=== PATIENT | female | born 1975 | race Caucasian/White ===

== ENCOUNTER 2016-08-16 07:53 | Emergency (ER) | payer MEDICAID ==
[2016-08-16] MEDS ORDERED: DEXAMETHASONE 10 MG/ML VIAL PO STA (08:23)
[2016-08-16] MEDS ORDERED: DEXAMETHASONE 10 MG/ML VIAL ONE (08:37)
[2016-08-16] MEDS ORDERED: CHERRY SYRUP 10 ML UDC PO ONE (08:37)
== END 2016-08-16 09:45 | disposition home or self-care (01) ==
DX: S29.012A Strain of muscle and tendon of back wall of thorax, initial encounter (principal); X50.9XXA Other and unspecified overexertion or strenuous movements or postures, initial encounter; H66.001 Acute suppurative otitis media without spontaneous rupture of ear drum, right ear; M35.2 Behcet's disease; F17.200 Nicotine dependence, unspecified, uncomplicated; Z79.891 Long term (current) use of opiate analgesic; Z87.01 Personal history of pneumonia (recurrent)
CPT/HCPCS: 71020; 99283; 99284; A9270

== ENCOUNTER 2018-05-27 14:29 | Emergency (ER) | payer MEDICAID ==
[2018-05-27 15:01] LABS: BASOPHILS # (AUTO) 0.1 10^3/uL (0.0-0.1); BASOPHILS % (AUTO) 1.1 %; EOSINOPHILS # (AUTO) 0.1 10^3/uL (0.0-0.7); EOSINOPHILS % (AUTO) 0.9 %; HGB - HEMOGLOBIN 14.7 g/dL (12.0-16.0); LYMPHOCYTES # (AUTO) 1.6 10^3/uL (1.5-3.5); MEAN CORPUSCULAR HEMOGLOBIN 31.4 pg (27.0-31.0); MEAN CORPUSCULAR HGB CONC 33.8 g/dL (32.0-36.0); MONOCYTES # (AUTO) 0.6 10^3/uL (0.0-1.0); MONOCYTES % (AUTO) 4.8 %; NEUTROPHILS # (AUTO) 9.9 10^3/uL (1.5-6.6); NEUTROPHILS % (AUTO) 80.2 %; PLT - PLATELET COUNT 330 10^3/uL (130-450); RED BLOOD COUNT 4.68 10^6/uL (4.20-5.40); RED CELL DISTRIBUTION WIDTH 13.3 % (12.0-15.0); WHITE BLOOD COUNT 12.4 x10^3/uL (4.8-10.8)
[2018-05-27] MEDS ORDERED: SODIUM CHLORIDE 0.9% 1,000 ML IV ONE (15:05)
[2018-05-27] MEDS ORDERED: PANTOPRAZOLE 40 MG VIAL IVP STA (15:05)
[2018-05-27] MEDS ORDERED: ONDANSETRON 4 MG/2 ML VIAL IVP STA (15:05)
--- NOTE | 2018-05-27 15:10 | ED Physician Documentation ---
PD HPI ABD PAIN - Stated complaint Stated Complaint: ABD PX, N/V/F - Chief complaint Chief Complaint: Abd Pain - History obtained from History obtained from: Patient, Family - History of Present Illness Timing - onset: Last night Timing - duration: Hours (20) Timing - details: Gradual onset Pain level max: 8 Pain level now: 8 Quality: Aching, Pain Location: Epigastric Radiation: Other (non-radiating) Improved by: Vomiting Worsened by: Eating Associated symptoms: Nausea, Vomiting. No: Fever, Hematemesis, Diarrhea, Constipation, Melena, Hematochezia Similar symptoms before: Diagnosis (ulcers) Recently seen: Not recently seen Review of Systems Ten Systems: 10 systems reviewed and negative Constitutional: denies: Fever, Chills Nose: denies: Rhinorrhea / runny nose, Congestion Respiratory: denies: Cough : denies: Now EGA Skin: denies: Rash Musculoskeletal: denies: Neck pain, Back pain Neurologic: denies: Focal weakness, Numbness, Headache PD PAST MEDICAL HISTORY - Past Medical History Cardiovascular: None Respiratory: None Endocrine/Autoimmune: None GI: None HEENT: None Psych: Depression, Anxiety Musculoskeletal: Osteoarthritis, Fibromyalgia, Other Derm: None - Past Surgical History Past Surgical History: Yes - Present Medications Home Medications: Ambulatory Orders Medication Instructions Recorded Confirmed Cyclosporine 200 mg PO DAILY 03/14/16 08/16/16 Gabapentin 300 mg ORAL BID 03/14/16 08/16/16 Ibuprofen 800 mg ORAL QID PRN 03/14/16 08/16/16 Meloxicam [Mobic] 15 mg PO DAILY 03/14/16 08/16/16 Morphine Sulfate [Ms Contin] 15 mg PO TID 03/14/16 08/16/16 Omeprazole [PriLOSEC] 40 mg PO BID 03/14/16 08/16/16 Oxycodone HCl/Acetaminophen 1 tab PO TID 03/14/16 08/16/16 [Oxycodone-Acetaminophen 5-325] Prednisone 10 mg PO PRN PRN 03/14/16 08/16/16 Famotidine [Pepcid] 20 mg PO BID #60 tablet 05/27/18 Ondansetron Odt [Zofran] 4 mg TL Q6H PRN #10 tablet 05/27/18 Sucralfate [Carafate] 1 gm PO ACHS #60 tablet 05/27/18 - Allergies Allergies/Adverse Reactions: Allergies Allergy/AdvReac Type Severity Reaction Status Date / Time Penicillins Allergy Cramps Verified 05/27/18 14:38 - Social History Does the pt smoke?: Yes Smoking Status: Current every day smoker Does the pt drink ETOH?: No Does the pt have substance abuse?: No - Immunizations Immunizations are current?: Yes PD ED PE NORMAL - Vitals Vital signs reviewed: Yes - General General: Alert and oriented X 3, No acute distress - HEENT HEENT: Moist mucous membranes - Neck Neck: Supple, no meningeal sign - Cardiac Cardiac: RRR, Strong equal pulses - Respiratory Respiratory: No respiratory distress, Clear bilaterally - Abdomen Abdomen: Soft, Non distended, Other (TTP epigastric without peritoneal signs.) - Back Back: No spinal TTP - Derm Derm: Warm and dry, No rash - Extremities Extremities: No edema - Neuro Neuro: Alert and oriented X 3 Results - Vitals Vitals: Vital Signs - 24 hr 05/27/18 05/27/18 14:36 17:09 Temperature 36.4 C L Heart Rate 79 98 Respiratory 22 20 Rate Blood Pressure 122/74 138/98 H O2 Saturation 100 100 Oxygen O2 Source Room air - Labs Labs: Laboratory Tests 05/27/18 05/27/18 05/27/18 14:55 14:55 16:45 WBC 12.4 H RBC 4.68 Hgb 14.7 Hct 43.6 MCV 93.0 MCH 31.4 H MCHC 33.8 RDW 13.3 Plt Count 330 MPV 8.0 Neut # (Auto) 9.9 H Lymph # (Auto) 1.6 [place] # (Auto) 0.6 Eos # (Auto) 0.1 Baso # (Auto) 0.1 Absolute Nucleated RBC 0.00 Nucleated RBC % 0.0 Sodium 135 Potassium 3.2 L Chloride 106 Carbon Dioxide 19 L Anion Gap 10.0 BUN 10 Creatinine 0.5 Estimated GFR (MDRD) 137 Glucose 102 H Calcium 9.2 Total Bilirubin 0.8 AST 21 ALT 19 Alkaline Phosphatase 68 Total Protein 7.5 Albumin 4.4 Globulin 3.1 Albumin/Globulin Ratio 1.4 Lipase 28 Urine Color YELLOW Urine Clarity CLEAR Urine pH >=9.0 H Ur Specific [place] 1.010 Urine Protein NEGATIVE Urine Glucose (UA) NEGATIVE Urine Ketones 40 H Urine Occult Blood NEGATIVE Urine Nitrite NEGATIVE Urine Bilirubin NEGATIVE Urine Urobilinogen 0.2 (NORMAL) Ur Leukocyte Esterase NEGATIVE Ur Microscopic Review NOT INDICATED Urine Culture Comments NOT INDICATED Urine HCG, Qual NEGATIVE PD MEDICAL DECISION MAKING - ED course Complexity details: reviewed results, re-evaluated patient, considered differential, d/w patient, d/w family ED course: 42-year-old female with vomiting and abdominal pain today. Feels better after Zofran and GI cocktail. Able to tolerate p.o. No acute findings on laboratory testing. This is similar to past episodes. We will continue supportive care and follow-up closely with her doctor. Patient counseled regarding signs and symptoms for which I believe and urgent re-evaluation would be necessary. Patient with good understanding of and agreement to plan and is comfortable going home at this time This document was made in part using voice recognition software. While efforts are made to proofread this document, sound alike and grammatical errors may occur. Departure - Departure Disposition: 01 Home, Self Care Clinical Impression: Vomiting Qualifiers: Vomiting type: unspecified Vomiting Intractability: non-intractable Nausea presence: with nausea Qualified Code(s): R11.2 - Nausea with vomiting, unspecified Abdominal pain Qualifiers: Abdominal location: epigastric Qualified Code(s): R10.13 - Epigastric pain Condition: Good Instructions: ED Abdominal Pain Unkn Cause, ED Nausea Vomiting Follow-Up: Nafisa Clemons PA-C [Primary Care Provider] - Within 1 week Prescriptions: Famotidine [Pepcid] 20 mg PO BID #60 tablet Ondansetron Odt [Zofran] 4 mg TL Q6H PRN #10 tablet PRN Reason: Nausea / Vomiting Sucralfate [Carafate] 1 gm PO ACHS #60 tablet Comments: Return if you worsen. Go home and rest tonight. Drink plenty of fluids. Discharge Date/Time: 05/27/18 17:25
[2018-05-27 15:14] LABS: ALBUMIN 4.4 g/dL (3.2-5.5); ALBUMIN/GLOBULIN RATIO 1.4 (1.0-2.2); BILIRUBIN,TOTAL 0.8 mg/dL (0.2-1.0); CALCIUM 9.2 mg/dL (8.5-10.3); CREATININE 0.5 mg/dL (0.4-1.0); TOTAL PROTEIN 7.5 g/dL (6.7-8.2)
[2018-05-27] MEDS ORDERED: PHENobarb/HYOSCY/ATROPINE/SCOP 5 ML UDC PO STA (16:50)
[2018-05-27] MEDS ORDERED: MAG HYDROX/AL HYDROX/SIMETH 30 ML UDC PO STA (16:50)
[2018-05-27] MEDS ORDERED: FAMOTIDINE 20 MG TABLET PO STA (16:50)
[2018-05-27] MEDS ORDERED: SUCRALFATE 1 GM/10 ML UDC PO STA (16:50)
[2018-05-27 16:52] LABS: BILIRUBIN,URINE NEGATIVE (NEGATIVE); GLUCOSE, URINE (UA) NEGATIVE (NEGATIVE); KETONES,URINE (UA) 40 mg/dL (NEGATIVE); LEUKOCYTE ESTERASE, URINE NEGATIVE (NEGATIVE); NITRITE,URINE NEGATIVE (NEGATIVE); OCCULT BLOOD,URINE NEGATIVE (NEGATIVE); PH,URINE >=9.0 PH (5.0-7.5); PROTEIN,URINE NEGATIVE (NEGATIVE); UROBILINOGEN,URINE 0.2 (NORMAL) E.U./dL (NORMAL)
[2018-05-27 16:56] LABS: CLARITY,URINE CLEAR (CLEAR); HCG UR QUAL NEGATIVE
[2018-05-27 17:09] VITALS: BP 138/98
== END 2018-05-27 17:25 | disposition home or self-care (01) ==
LOC: ED 14:29
DX: R11.2 Nausea with vomiting, unspecified (principal); R10.13 Epigastric pain; F17.200 Nicotine dependence, unspecified, uncomplicated
CPT/HCPCS: 36415; 80053; 81003; 81025; 83690; 85025; 96361; 96374; 99283; A9270; 81001; 87086

== ENCOUNTER 2018-08-03 08:25 | Outpatient (CLI) | payer MEDICAID ==
--- NOTE | 2018-08-03 11:01 | Ultrasound Report ---
Reason: ABDOMINAL PAIN,EPIGASTRIC,CHRONIC PAIN SYNDROME Procedure Date: 08/03/2018 Accession Number: [id number] / [id number] Procedure: US - Abdomen Limited CPT Code: FULL RESULT: EXAM: ABDOMEN ULTRASOUND LIMITED, RUQ EXAM DATE: 08/03/2018 09:48 AM. CLINICAL HISTORY: ABDOMINAL PAIN,EPIGASTRIC,CHRONIC PAIN SYNDROME. Behcet's syndrome COMPARISON: CT abdomen pelvis 03/04/2014. TECHNIQUE: Real-time scanning was performed with static images obtained. FINDINGS: Liver: Normal in size and echotexture. Small 7 x 6 x 7 mm echogenic focus right lobe of the liver, possible hemangioma. Similar lesion seen 03/04/[address] 13.3 cm. Main portal vein flow: Hepatopetal. Gallbladder: Mildly contracted. No stones seen. Wall thickness 1.8 mm Biliary System: CBD measures 4.6 mm. No intrahepatic or extrahepatic ductal dilatation. Free fluid: None. Right kidney: 12.5 cm longitudinally; no hydronephrosis. IMPRESSION: Subcentimeter echogenic right hepatic lobe lesion, likely a small hemangioma, present on 03/04/2014. No cholelithiasis or cholecystitis. RADIA
== END 2018-08-03 08:26 | disposition home or self-care (01) ==
LOC: DI 08:25
PROVIDERS: ATTEND Internal Medicine Gastroenterology
DX: R10.13 Epigastric pain (principal); G89.4 Chronic pain syndrome; K76.9 Liver disease, unspecified
CPT/HCPCS: 76705

== ENCOUNTER 2018-08-21 10:33 | Outpatient (CLI) | payer MEDICAID ==
[2018-08-21 11:33] LABS: BASOPHILS # (AUTO) 0.1 10^3/uL (0.0-0.1); BASOPHILS % (AUTO) 0.9 %; EOSINOPHILS # (AUTO) 0.1 10^3/uL (0.0-0.7); EOSINOPHILS % (AUTO) 1.3 %; HGB - HEMOGLOBIN 13.1 g/dL (12.0-16.0); LYMPHOCYTES # (AUTO) 1.8 10^3/uL (1.5-3.5); LYMPHOCYTES % (AUTO) 17.4 %; MEAN CORPUSCULAR HEMOGLOBIN 31.1 pg (27.0-31.0); MEAN CORPUSCULAR HGB CONC 33.9 g/dL (32.0-36.0); MEAN CORPUSCULAR VOLUME 91.8 fL (81.0-99.0); MEAN PLATELET VOLUME 8.1 fL (7.9-10.8); MONOCYTES # (AUTO) 0.8 10^3/uL (0.0-1.0); MONOCYTES % (AUTO) 7.7 %; NEUTROPHILS # (AUTO) 7.5 10^3/uL (1.5-6.6); NEUTROPHILS % (AUTO) 72.7 %; PLT - PLATELET COUNT 311 10^3/uL (130-450); RED BLOOD COUNT 4.19 10^6/uL (4.20-5.40); RED CELL DISTRIBUTION WIDTH 12.9 % (12.0-15.0); WHITE BLOOD COUNT 10.4 x10^3/uL (4.8-10.8)
[2018-08-21 12:36] LABS: CALCIUM 8.8 mg/dL (8.5-10.3)
[2018-08-21 16:02] LABS: ALBUMIN 3.9 g/dL (3.2-5.5); ALBUMIN/GLOBULIN RATIO 1.3 (1.0-2.2); BILIRUBIN,TOTAL 0.3 mg/dL (0.2-1.0); CREATININE 0.4 mg/dL (0.4-1.0)
== END 2018-08-21 10:34 | disposition home or self-care (01) ==
LOC: LAB 10:33
PROVIDERS: ATTEND Internal Medicine Gastroenterology
DX: R10.13 Epigastric pain (principal)
CPT/HCPCS: 36415; 80053; 83690; 85025

== ENCOUNTER 2018-08-30 09:27 | Day surgery (SDC) | payer MEDICAID ==
[2018-08-30 09:54] LABS: HCG UR QUAL NEGATIVE
[2018-08-30] MEDS ORDERED: LACTATED RINGERS 1,000 ML IV ONE ×2 (10:01→10:29)
[2018-08-30] MEDS ORDERED: LIDO GARGLE 30 ML BOTTLE ONE (10:02)
[2018-08-30] MEDS ORDERED: fentaNYL 100 MCG/2 ML VIAL IVP ONE (10:15)
[2018-08-30] MEDS ORDERED: MIDAZOLAM 2 MG/2 ML VIAL IVP ONE (10:15)
[2018-08-30] MEDS ORDERED: LIDO GARGLE 30 ML BOTTLE TOP ONE (10:26)
[2018-08-30 11:14] VITALS: BP 105/77
== END 2018-08-30 09:28 | disposition home or self-care (01) ==
LOC: SDS 09:27
PROVIDERS: ATTEND Internal Medicine Gastroenterology
PROC: 0DB78ZX Excision of Stomach, Pylorus, Via Natural or Artificial Opening Endoscopic, Diagnostic (ICD-10-PCS; 2018-08-30)
PROC: 0DB98ZX Excision of Duodenum, Via Natural or Artificial Opening Endoscopic, Diagnostic (ICD-10-PCS; principal; 2018-08-30 09:45)
DX: R10.13 Epigastric pain (principal); K25.9 Gastric ulcer, unspecified as acute or chronic, without hemorrhage or perforation; K29.60 Other gastritis without bleeding; B96.81 Helicobacter pylori [H. pylori] as the cause of diseases classified elsewhere; F17.210 Nicotine dependence, cigarettes, uncomplicated; K21.9 Gastro-esophageal reflux disease without esophagitis; M35.2 Behcet's disease; G89.4 Chronic pain syndrome
CPT/HCPCS: 43239; 81025; 87081; A9270; J7120

== ENCOUNTER 2018-10-08 14:22 | Outpatient (CLI) | payer MEDICAID ==
[2018-10-08 15:40] LABS: THYROID STIMULATING HORMONE 0.55 uIU/mL (0.34-5.60)
[2018-10-08 15:42] LABS: FREE T4 (FREE THYROXINE) 0.66 ng/dL (0.58-1.64)
== END 2018-10-08 14:23 | disposition home or self-care (01) ==
LOC: LAB 14:22
PROVIDERS: ATTEND Family Medicine
DX: M79.7 Fibromyalgia (principal)
CPT/HCPCS: 36415; 84439; 84443; 84481

== ENCOUNTER 2018-11-24 21:14 | Emergency (ER) | payer MEDICAID ==
--- NOTE | 2018-11-24 21:57 | ED Physician Documentation ---
PD HPI FEMALE - Stated complaint Stated Complaint: ABD PX/FEVER - Chief complaint Chief Complaint: Abd Pain - History obtained from History obtained from: Patient - History of Present Illness Timing - onset: How many days ago (4) Timing - duration: Days Timing - details: Gradual onset, Waxing and waning Associated symptoms: Fever, Back pain, Dysuria, Urinary frequency, Hematuria Contributing factors: IUD Similar symptoms before: Diagnosis (similar to previous UTI/pyelonephritis) Recently seen: Not recently seen - Additional information Additional information: c/o 4 days of dysuria c/w previous UTIs, developed right flank/back pain and hematuria since yesterday. Has nausea but no vomiting. Feels as though she's been having fevers; she has taken her temperature while at work and Tmax was 100, but felt worse when she was home but doesn't have working thermometer at home. Review of Systems Constitutional: reports: Fever, Chills, Sweats Respiratory: reports: Reviewed and negative GI: reports: Nausea. denies: Abdominal Pain, Vomiting, Constipation, Diarrhea : reports: Dysuria, Frequency, Hematuria, Control (IUD). denies: Now EGA Musculoskeletal: reports: Back pain PD PAST MEDICAL HISTORY - Past Medical History Cardiovascular: None Respiratory: None Endocrine/Autoimmune: None GI: None HEENT: None Psych: Depression, Anxiety Musculoskeletal: Osteoarthritis, Fibromyalgia, Chronic back pain, Other Derm: None - Past Surgical History Past Surgical History: Yes - Present Medications Home Medications: Ambulatory Orders Medication Instructions Recorded Confirmed Cyclosporine 200 mg PO DAILY 03/14/16 08/30/18 Gabapentin 300 mg ORAL BID 03/14/16 08/30/18 Meloxicam [Mobic] 15 mg PO DAILY 03/14/16 08/30/18 Morphine Sulfate [Ms Contin] 15 mg PO TID 03/14/16 08/30/18 Omeprazole [PriLOSEC] 40 mg PO BID 03/14/16 08/30/18 Oxycodone HCl/Acetaminophen 1 tab PO TID 03/14/16 08/30/18 [Oxycodone-Acetaminophen 5-325] Prednisone 10 mg PO PRN PRN 03/14/16 08/30/18 Ondansetron Odt [Zofran] 4 mg TL Q6H PRN #10 tablet 05/27/18 08/30/18 Sucralfate [Carafate] 1 gm PO ACHS #60 tablet 05/27/18 08/30/18 Cyclobenzaprine [Flexeril] 10 mg PO TID PRN 08/30/18 08/30/18 Ciprofloxacin HCl [Cipro] 500 mg PO BID #14 tablet 11/25/18 oxyCODONE [Roxicodone] 5 mg PO Q4-6H PRN #14 tablet 11/25/18 - Allergies Allergies/Adverse Reactions: Allergies Allergy/AdvReac Type Severity Reaction Status Date / Time Penicillins Allergy violent Verified 08/30/18 10:09 vomiting and cramping - Social History Does the pt smoke?: Yes Smoking Status: Current every day smoker Does the pt drink ETOH?: No Does the pt have substance abuse?: No - Immunizations Immunizations are current?: Yes - POLST Patient has POLST: No PD ED PE NORMAL - Vitals Vital signs reviewed: Yes - General General: Alert and oriented X 3, Well developed/nourished, Other (appears to be in mild/moderate painful discomfort) - HEENT HEENT: Moist mucous membranes - Neck Neck: Supple, no meningeal sign - Cardiac Cardiac: RRR, No murmur - Respiratory Respiratory: No respiratory distress, Clear bilaterally - Abdomen Abdomen: Soft, Non distended, Other (moderate RLQ>RUQ tenderness to palpation without rebound or guarding) - Derm Derm: Normal color, Warm and dry, No rash PD ED PE EXPANDED - Back Back: CVA TTP right Results - Vitals Vitals: Vital Signs - 24 hr 11/24/18 11/25/18 21:18 00:35 Temperature 36.9 C 36.9 C Heart Rate 106 H 104 H Respiratory 22 20 Rate Blood Pressure 136/85 H 129/86 H O2 Saturation 99 98 Oxygen O2 Source Room air - Labs Labs: Laboratory Tests 11/24/18 11/24/18 11/24/18 22:16 22:40 22:40 WBC 16.1 H RBC 4.15 L Hgb 12.9 Hct 38.2 MCV 92.1 MCH 31.1 H MCHC 33.8 RDW 13.1 Plt Count 214 MPV 8.2 Neut # (Auto) 14.1 H Lymph # (Auto) 0.8 L [place] # (Auto) 1.0 Eos # (Auto) 0.0 Baso # (Auto) 0.1 Absolute Nucleated RBC 0.00 Nucleated RBC % 0.0 Sodium 137 Potassium 3.2 L Chloride 106 Carbon Dioxide 19 L Anion Gap 12.0 BUN 8 Creatinine 0.5 Estimated GFR (MDRD) 136 Glucose 107 H Calcium 8.8 Total Bilirubin 1.1 H AST 34 ALT 37 Alkaline Phosphatase 70 Total Protein 7.5 Albumin 3.8 Globulin 3.7 Albumin/Globulin Ratio 1.0 Lipase 21 L Urine Color YELLOW Urine Clarity HAZY Urine pH 7.0 Ur Specific [place] <=1.005 Urine Protein TRACE Urine Glucose (UA) NEGATIVE Urine Ketones NEGATIVE Urine Occult Blood MODERATE H Urine Nitrite POSITIVE H Urine Bilirubin NEGATIVE Urine Urobilinogen 0.2 (NORMAL) Ur Leukocyte Esterase LARGE H Urine RBC 11-25 H Urine WBC >25 H Urine WBC Clumps PRESENT Ur Squamous Epith Cells RARE Squamous Urine Bacteria Many H Ur Microscopic Review INDICATED Urine Culture Comments INDICATED Urine HCG, Qual NEGATIVE - Rads (name of study) CT A/P Radiology: Prelim report reviewed, See rad report PD MEDICAL DECISION MAKING - ED course Complexity details: reviewed old records, reviewed results, re-evaluated patient, considered differential, d/w patient ED course: HPI c/w UTI that has progressed to pyelonephritis. CT A/P performed due to significant abdominal tenderness; results c/w pyelonephritis without complication Departure - Departure Disposition: 01 Home, Self Care Clinical Impression: Pyelonephritis Condition: Good Instructions: ED Kidney Infec Female Follow-Up: Andrea Echevarria MD [Primary Care Provider] - Prescriptions: Ciprofloxacin HCl [Cipro] 500 mg PO BID #14 tablet oxyCODONE [Roxicodone] 5 mg PO Q4-6H PRN #14 tablet PRN Reason: Pain Forms: Activity restrictions Discharge Date/Time: 11/25/18 00:45
[2018-11-24] MEDS ORDERED: HYDROmorphone 1 MG/ML CARPUJECT IVP STA (22:19)
[2018-11-24] MEDS ORDERED: SODIUM CHLORIDE 0.9% 1,000 ML IV STA (22:19)
[2018-11-24] MEDS ORDERED: ONDANSETRON 4 MG/2 ML VIAL IVP STA (22:20)
[2018-11-24 22:24] LABS: BILIRUBIN,URINE NEGATIVE (NEGATIVE); GLUCOSE, URINE (UA) NEGATIVE (NEGATIVE); KETONES,URINE (UA) NEGATIVE (NEGATIVE); LEUKOCYTE ESTERASE, URINE LARGE (NEGATIVE); NITRITE,URINE POSITIVE (NEGATIVE); OCCULT BLOOD,URINE MODERATE (NEGATIVE); PROTEIN,URINE TRACE mg/dL (NEGATIVE); UROBILINOGEN,URINE 0.2 (NORMAL) E.U./dL (NORMAL)
[2018-11-24 22:25] LABS: CLARITY,URINE HAZY (CLEAR)
[2018-11-24 22:27] LABS: HCG UR QUAL NEGATIVE
[2018-11-24 22:35] LABS: BACTERIA,URINE Many /HPF (None Seen); SQUAMOUS EPITHELIAL CELL,UR RARE Squamous (<= Few); WBC CLUMPS,URINE PRESENT
[2018-11-24 22:44] LABS: BASOPHILS # (AUTO) 0.1 10^3/uL (0.0-0.1); BASOPHILS % (AUTO) 0.7 %; EOSINOPHILS % (AUTO) 0.1 %; HGB - HEMOGLOBIN 12.9 g/dL (12.0-16.0); LYMPHOCYTES # (AUTO) 0.8 10^3/uL (1.5-3.5); LYMPHOCYTES % (AUTO) 5.2 %; MEAN CORPUSCULAR HEMOGLOBIN 31.1 pg (27.0-31.0); MEAN CORPUSCULAR HGB CONC 33.8 g/dL (32.0-36.0); MEAN CORPUSCULAR VOLUME 92.1 fL (81.0-99.0); MEAN PLATELET VOLUME 8.2 fL (7.9-10.8); MONOCYTES % (AUTO) 6.4 %; NEUTROPHILS # (AUTO) 14.1 10^3/uL (1.5-6.6); NEUTROPHILS % (AUTO) 87.6 %; PLT - PLATELET COUNT 214 10^3/uL (130-450); RED BLOOD COUNT 4.15 10^6/uL (4.20-5.40); RED CELL DISTRIBUTION WIDTH 13.1 % (12.0-15.0); WHITE BLOOD COUNT 16.1 x10^3/uL (4.8-10.8)
[2018-11-24 22:58] LABS: ALBUMIN 3.8 g/dL (3.2-5.5); BILIRUBIN,TOTAL 1.1 mg/dL (0.2-1.0); CALCIUM 8.8 mg/dL (8.5-10.3); CREATININE 0.5 mg/dL (0.4-1.0); TOTAL PROTEIN 7.5 g/dL (6.7-8.2)
[2018-11-24] MEDS ORDERED: IOVERSOL 320 100 ML VIAL IVP ONE ×2 (23:12→23:37)
--- NOTE | 2018-11-24 23:47 | CT Report ---
Reason: abd. pain Procedure Date: 11/24/2018 Accession Number: [id number] / [id number] Procedure: CT - Abdomen/Pelvis W CPT Code: FULL RESULT: EXAM: CT ABDOMEN AND PELVIS EXAM DATE: 11/24/2018 11:22 PM. CLINICAL HISTORY: Abdominal pain and back pain. Blood in the urine. COMPARISONS: 03/04/2014. TECHNIQUE: Routine helical CT imaging was performed through the abdomen and pelvis. IV contrast: 100 ML OPTIRAY 320. Enteric contrast: No. Reconstructions: Coronal and sagittal. In accordance with CT protocol optimization, one or more of the following dose reduction techniques were utilized for this exam: automated exposure control, adjustment of mA and/or KV based on patient size, or use of iterative reconstructive technique. FINDINGS: Lung Bases: Mild bibasilar atelectasis. Liver: Small focus of decreased attenuation in the left lobe measuring about 7 mm, series 3 image 16. This is unchanged from the prior CT. Gallbladder/Bile Ducts: Unremarkable. Spleen: Normal. Pancreas: Normal. Adrenal Glands: Normal. Kidneys: Heterogeneous enhancement of the right kidney with enhancement of the urothelium and mild perinephric stranding. No urolithiasis identified on the right. The left kidney enhances normally. Cannot exclude nonobstructing stones on the left, but uncertain because of excreted contrast. Peritoneal Cavity/Bowel: Moderate to large amount of stool in the colon. No diverticulitis seen. No bowel obstruction. Trace amount of free fluid. No free air. No lymphadenopathy. Appendix is partially seen and visualized portions appear normal. Pelvic Organs: IUD in expected position. Visualized pelvic organs are otherwise unremarkable. Vasculature: No aneurysms or other significant abnormality. Bones: Grade 1 degenerative spondylolisthesis at L5-S1. Other: None. IMPRESSION: 1. Right-sided pyelonephritis. 2. Moderate to large amount of stool in the colon. 3. Appendix is partially seen and visualized portions appear normal. RADIA
[2018-11-25] MEDS ORDERED: CIPROFLOXACIN 250 MG TABLET PO STA (00:10)
[2018-11-25 00:37] VITALS: BP 129/86
== END 2018-11-25 00:45 | disposition home or self-care (01) ==
LOC: ED 21:14
DX: N12 Tubulo-interstitial nephritis, not specified as acute or chronic (principal); F17.200 Nicotine dependence, unspecified, uncomplicated
CPT/HCPCS: 36415; 74177; 80053; 81001; 81025; 83690; 85025; 87086; 87181; 96361; 96374; 99283; 99284; A9270; J1170; Q9967; 81003

== ENCOUNTER 2020-01-07 09:20 | Outpatient (CLI) | payer MEDICAID | END 2020-01-07 23:59 | disposition home or self-care (01) | LOC: COV 09:20 | PROVIDERS: ATTEND Family Medicine | DX: R50.9 Fever, unspecified (principal); J02.9 Acute pharyngitis, unspecified; Z20.828 Contact with and (suspected) exposure to other viral communicable diseases ==

== ENCOUNTER 2020-03-21 11:20 | Emergency (ER) | payer MEDICAID ==
--- NOTE | 2020-03-21 12:41 | XRAY Report ---
PROCEDURE: Foot 3 View RT INDICATIONS: trauma TECHNIQUE: 3 views of the foot were acquired. COMPARISON: None. FINDINGS: Bones: No fractures or dislocations. Hallux valgus. No suspicious bony lesions. Soft tissues: No tibiotalar joint effusion. Achilles tendon appears normal. IMPRESSION: No acute bony abnormality. If there is clinical concern for a Lisfranc injury, consider weightbearing views of the right foot versus CT. Hallux valgus. Reviewed by: Russell Saucedo on 03/21/2020 11:40 AM RINA Approved by: Russell Saucedo on 03/21/2020 11:40 AM RINA Station ID: [id number]
[2020-03-21] MEDS ORDERED: oxyCODONE 5 MG TABLET PO STA (13:00)
--- NOTE | 2020-03-21 13:00 | ED Physician Documentation ---
PD HPI LOWER EXT INJURY - Stated complaint Stated Complaint: R FOOT PX - Chief complaint Chief Complaint: Ext Problem - History obtained from History obtained from: Patient - History of Present Illness PD HPI LOW EXT INJURY LOCATION: Right, Foot Type of injury: Fall Where injury occurred: Home Timing - onset: Last night Timing - details: Abrupt onset Pain level max: 8 Pain level now: 8 Improved by: Rest Worsened by: Moving, Palpating Associated symptoms: Swelling, Discolored (ecchymosis). No: Weakness, Numbness, Tingling Contributing factors: No: Anticoagulated Recently seen: Not recently seen - Additional information Additional information: fall last night, injured the R foot Review of Systems Constitutional: denies: Fever, Chills GI: denies: Vomiting Skin: denies: Rash PD PAST MEDICAL HISTORY - Past Medical History Cardiovascular: None Respiratory: None Endocrine/Autoimmune: None GI: None HEENT: None Psych: Depression, Anxiety Musculoskeletal: Osteoarthritis, Fibromyalgia, Chronic back pain, Other Derm: None - Past Surgical History Past Surgical History: Yes - Present Medications Home Medications: Ambulatory Orders Medication Instructions Recorded Confirmed Cyclosporine 200 mg PO DAILY 03/14/16 08/30/18 Gabapentin 300 mg ORAL BID 03/14/16 08/30/18 Meloxicam [Mobic] 15 mg PO DAILY 03/14/16 08/30/18 Morphine Sulfate [Ms Contin] 15 mg PO TID 03/14/16 08/30/18 Omeprazole [PriLOSEC] 40 mg PO BID 03/14/16 08/30/18 Oxycodone HCl/Acetaminophen 1 tab PO TID 03/14/16 08/30/18 [Oxycodone-Acetaminophen 5-325] Prednisone 10 mg PO PRN PRN 03/14/16 08/30/18 Ondansetron Odt [Zofran] 4 mg TL Q6H PRN #10 tablet 05/27/18 08/30/18 Sucralfate [Carafate] 1 gm PO ACHS #60 tablet 05/27/18 08/30/18 Cyclobenzaprine [Flexeril] 10 mg PO TID PRN 08/30/18 08/30/18 Ciprofloxacin HCl [Cipro] 500 mg PO BID #14 tablet 11/25/18 oxyCODONE [Roxicodone] 5 mg PO Q4-6H PRN #14 tablet 11/25/18 Oxycodone HCl/Acetaminophen 1 - 2 each PO Q6H PRN #14 tablet 03/21/20 [Percocet 5-325 mg Tablet] - Allergies Allergies/Adverse Reactions: Allergies Allergy/AdvReac Type Severity Reaction Status Date / Time Penicillins Allergy violent Verified 03/21/20 11:50 vomiting and cramping - Social History Does the pt smoke?: Yes Smoking Status: Current every day smoker Does the pt drink ETOH?: No Does the pt have substance abuse?: No - Immunizations Immunizations are current?: Yes - POLST Patient has POLST: No PD ED PE NORMAL - Vitals Vital signs reviewed: Yes - General General: Alert and oriented X 3 - HEENT HEENT: Moist mucous membranes - Neck Neck: Supple, no meningeal sign - Derm Derm: Warm and dry - Extremities Extremities: Other (TTP R foot, lateral aspect. swelling and ecchymosis over the proximal aspect of MT 3-5. No gross deformity. NVI. o/w normal exam) - Neuro Neuro: Alert and oriented X 3 - Psych Psych: Normal mood, Normal affect Results - Vitals Vitals: Vital Signs - 24 hr 03/21/20 11:40 Temperature 36.7 C Heart Rate 102 H Respiratory 18 Rate Blood Pressure 158/104 H O2 Saturation 98 Oxygen O2 Source Room air - Rads (name of study) R foot xray Radiology: Prelim report reviewed, EMP read contemporaneously, See rad report PD MEDICAL DECISION MAKING - ED course Complexity details: reviewed results, re-evaluated patient, considered differential, d/w patient ED course: 44-year-old female with what appears to be a right foot sprain. She has swelling and ecchymosis at the site. She is out of her pain medication. Will prescribe a few pain pills to last her for the weekend. She will follow-up with her doctor for further refill of her medications. Patient will also follow-up with her doctor for repeat evaluation of her foot. And to assess ligamentous stability at that time. Neurovascular intact. Patient counseled regarding signs and symptoms for which I believe and urgent re-evaluation would be necessary. Patient with good understanding of and agreement to plan and is comfortable going home at this time This document was made in part using voice recognition software. While efforts are made to proofread this document, sound alike and grammatical errors may occur. No acute bony abnormality. If there is clinical concern for a Lisfranc injury, consider weightbearing views of the right foot versus CT. Departure - Departure Disposition: 01 Home, Self Care Clinical Impression: Foot sprain Qualifiers: Encounter type: initial encounter Laterality: right Qualified Code(s): S93.601A - Unspecified sprain of right foot, initial encounter Condition: Good Instructions: ED Sprain Foot Follow-Up: Andrea Echevarria MD [Primary Care Provider] - Within 1 week Prescriptions: Oxycodone HCl/Acetaminophen [Percocet 5-325 mg Tablet] 1 - 2 each PO Q6H PRN #14 tablet PRN Reason: pain Comments: Return if you worsen. Follow-up with your doctor on Monday for your medication refills. You may bear weight as tolerated. You should be reevaluated in 1 week to ensure there is no ligamentous instability in your foot. Follow-up with your doctor for further care. Do not drink alcohol or drive while on narcotic pain medicine. Note that many narcotic pain relievers also contain tylenol/acetaminophen. Please ensure that your total dose of acetaminophen from all sources does not exceed 3 grams (3000mg) per day. You may constipated on this medication, take a stool softener such as "Colace" twice a day while you are on it. Also recommend a [id number] laxative such as senna or MiraLAX any day that you do not have a bowel movement. If you received narcotic pain medication in the emergency department, do not drive or operate machinery for the next 24 hours. Forms: Activity restrictions
[2020-03-21 13:23] VITALS: BP 148/113
== END 2020-03-21 13:34 | disposition home or self-care (01) ==
LOC: ED 11:20
DX: S93.601A Unspecified sprain of right foot, initial encounter (principal); W19.XXXA Unspecified fall, initial encounter; F17.200 Nicotine dependence, unspecified, uncomplicated
CPT/HCPCS: 73630; 99283; 99284; A9270

== ENCOUNTER 2020-04-28 16:36 | Outpatient (CLI) | payer MEDICAID | END 2020-04-28 16:37 | disposition home or self-care (01) | LOC: COV 16:36 | PROVIDERS: ATTEND Family Medicine | DX: R05 Cough (principal); M79.10 Myalgia, unspecified site; R53.83 Other fatigue; R68.83 Chills (without fever); J02.9 Acute pharyngitis, unspecified; R09.81 Nasal congestion; Z20.828 Contact with and (suspected) exposure to other viral communicable diseases ==

== ENCOUNTER 2020-10-16 00:44 | Emergency (ER) | payer MEDICAID ==
[2020-10-16 01:12] LABS: BASOPHILS # (AUTO) 0.1 10^3/uL (0.0-0.1); BASOPHILS % (AUTO) 0.8 %; EOSINOPHILS # (AUTO) 0.1 10^3/uL (0.0-0.7); EOSINOPHILS % (AUTO) 1.5 %; HGB - HEMOGLOBIN 14.4 g/dL (12.0-16.0); LYMPHOCYTES # (AUTO) 1.8 10^3/uL (1.5-3.5); LYMPHOCYTES % (AUTO) 18.7 %; MEAN CORPUSCULAR HEMOGLOBIN 31.1 pg (27.0-31.0); MEAN CORPUSCULAR HGB CONC 33.5 g/dL (32.0-36.0); MEAN CORPUSCULAR VOLUME 92.9 fL (81.0-99.0); MEAN PLATELET VOLUME 9.7 fL (7.9-10.8); MONOCYTES # (AUTO) 0.6 10^3/uL (0.0-1.0); NEUTROPHILS % (AUTO) 72.8 %; PLT - PLATELET COUNT 264 10^3/uL (130-450); RED BLOOD COUNT 4.63 10^6/uL (4.20-5.40); RED CELL DISTRIBUTION WIDTH 12.1 % (12.0-15.0); WHITE BLOOD COUNT 9.6 x10^3/uL (4.8-10.8)
[2020-10-16 01:29] LABS: ALBUMIN 4.2 g/dL (3.2-5.5); ALBUMIN/GLOBULIN RATIO 1.4 (1.0-2.2); BILIRUBIN,TOTAL 0.5 mg/dL (0.2-1.0); CALCIUM 9.3 mg/dL (8.5-10.3); CREATININE 0.7 mg/dL (0.4-1.0); POTASSIUM 3.8 mmol/L (3.5-5.0); TOTAL PROTEIN 7.1 g/dL (6.7-8.2)
--- NOTE | 2020-10-16 02:46 | ED Physician Documentation ---
History of Present Illness - Stated complaint Stated Complaint: CP - Chief complaint Chief Complaint: Cardiac - History obtained from History obtained from: Patient - Additonal information Additional information: 45-year-old woman, current daily smoker with past medical history of anxiety presents with left-sided chest pain occurring at rest at 2250, sudden in onset, sharp, associated with nausea and worse with deep breathing and cough. Patient states she has had nonproductive cough worsening over the past couple days. Denies shortness of breath, nausea vomiting and fever.Denies leg swelling, bedrest, recent prolonged travel or estrogen use.She is using the Mirena IUD. Review of Systems Ten Systems: 10 systems reviewed and negative Constitutional: denies: Fever, Chills Cardiac: reports: Chest pain / pressure Respiratory: reports: Cough GI: reports: Nausea. denies: Vomiting Neurologic: reports: Generalized weakness PD PAST MEDICAL HISTORY - Past Medical History Past Medical History: Yes Cardiovascular: None Respiratory: None Endocrine/Autoimmune: None GI: None HEENT: None Psych: Depression, Anxiety Musculoskeletal: Osteoarthritis, Fibromyalgia, Chronic back pain, Other Derm: None Other Past Medical History: Behcet's Syndrome - Past Surgical History Past Surgical History: Yes - Present Medications Home Medications: Ambulatory Orders Medication Instructions Recorded Confirmed Cyclosporine 200 mg PO DAILY 03/14/16 08/30/18 Gabapentin 300 mg ORAL BID 03/14/16 08/30/18 Meloxicam [Mobic] 15 mg PO DAILY 03/14/16 08/30/18 Morphine Sulfate [Ms Contin] 15 mg PO TID 03/14/16 08/30/18 Omeprazole [PriLOSEC] 40 mg PO BID 03/14/16 08/30/18 Oxycodone HCl/Acetaminophen 1 tab PO TID 03/14/16 08/30/18 [Oxycodone-Acetaminophen 5-325] Prednisone 10 mg PO PRN PRN 03/14/16 08/30/18 Ondansetron Odt [Zofran] 4 mg TL Q6H PRN #10 tablet 05/27/18 08/30/18 Sucralfate [Carafate] 1 gm PO ACHS #60 tablet 05/27/18 08/30/18 Cyclobenzaprine [Flexeril] 10 mg PO TID PRN 08/30/18 08/30/18 Ciprofloxacin HCl [Cipro] 500 mg PO BID #14 tablet 11/25/18 oxyCODONE [Roxicodone] 5 mg PO Q4-6H PRN #14 tablet 11/25/18 Oxycodone HCl/Acetaminophen 1 - 2 each PO Q6H PRN #14 tablet 03/21/20 [Percocet 5-325 mg Tablet] - Allergies Allergies/Adverse Reactions: Allergies Allergy/AdvReac Type Severity Reaction Status Date / Time Penicillins Allergy violent Verified 10/16/20 00:58 vomiting and cramping - Social History Does the pt smoke?: Yes Smoking Status: Current every day smoker Does the pt drink ETOH?: No Does the pt have substance abuse?: No - Immunizations Immunizations are current?: Yes - POLST Patient has POLST: No PD ED PE NORMAL - Vitals Vital signs reviewed: Yes - General General: Alert and oriented X 3, No acute distress, Well developed/nourished - HEENT HEENT: Atraumatic, PERRL, EOMI - Neck Neck: Supple, no meningeal sign - Cardiac Cardiac: RRR, No murmur - Respiratory Respiratory: No respiratory distress, Clear bilaterally - Abdomen Abdomen: Non tender, Non distended - Derm Derm: Normal color, Warm and dry - Extremities Extremities: No deformity, No edema - Neuro Neuro: Alert and oriented X 3 - Psych Psych: Normal mood, Normal affect Results - Vitals Vitals: Vital Signs - 24 hr 10/16/20 10/16/20 10/16/20 00:45 01:20 01:52 Temperature 36.2 C L Heart Rate 109 H 80 94 Respiratory 21 23 22 Rate Blood Pressure 167/113 H 140/95 H 140/95 H Blood Pressure 158/117 H [Right] O2 Saturation 100 98 97 10/16/20 02:13 Temperature 36.1 C L Heart Rate 86 Respiratory 16 Rate Blood Pressure 134/99 H Blood Pressure [Right] O2 Saturation 98 Oxygen O2 Source Room air - Labs Labs: Laboratory Tests 10/16/20 10/16/20 10/16/20 00:55 00:55 00:55 WBC 9.6 RBC 4.63 Hgb 14.4 Hct 43.0 MCV 92.9 MCH 31.1 H MCHC 33.5 RDW 12.1 Plt Count 264 MPV 9.7 Neut # (Auto) 7.0 H Lymph # (Auto) 1.8 [place] # (Auto) 0.6 Eos # (Auto) 0.1 Baso # (Auto) 0.1 Absolute Nucleated RBC 0.00 Nucleated RBC % 0.0 D-Dimer Sodium 135 Potassium 3.8 Chloride 104 Carbon Dioxide 22 Anion Gap 9.0 BUN 14 Creatinine 0.7 Estimated GFR (MDRD) 91 Glucose 99 Calcium 9.3 Total Bilirubin 0.5 AST 17 ALT 18 Alkaline Phosphatase 70 Troponin I High Sens 3.4 Total Protein 7.1 Albumin 4.2 Globulin 2.9 Albumin/Globulin Ratio 1.4 Lipase 23 10/16/20 00:55 WBC RBC Hgb Hct MCV MCH MCHC RDW Plt Count MPV Neut # (Auto) Lymph # (Auto) [place] # (Auto) Eos # (Auto) Baso # (Auto) Absolute Nucleated RBC Nucleated RBC % D-Dimer < 200.0 L Sodium Potassium Chloride Carbon Dioxide Anion Gap BUN Creatinine Estimated GFR (MDRD) Glucose Calcium Total Bilirubin AST ALT Alkaline Phosphatase Troponin I High Sens Total Protein Albumin Globulin Albumin/Globulin Ratio Lipase PD MEDICAL DECISION MAKING - ED course ED course: 45-year-old woman presents with atypical chest pain. Heart score 1 (smoker, risk factor). Her D-dimer is negative and she is at low risk of pulmonary embolism. Patient believes that this episode of chest pain was anxiety provoked, however strict return precautions were given and patient will follow up with her primary Dr. Echevarria. Departure - Departure Disposition: 01 Home, Self Care Clinical Impression: Chest pain, Nausea Condition: Good Instructions: ED Chest Pain NonCardiac Comments: You are seen in the emergency department for chest pain. It appears not to be heart or pulmonary embolism related at this time. You should follow-up with Dr. Echevarria in regards to results and for follow-up. Return to the emergency department if you experience any new or worsening symptoms or have other concerns.
[2020-10-16 05:39] VITALS: BP 131/102
--- NOTE | 2020-10-16 08:55 | XRAY Report ---
PROCEDURE: Chest 1 View X-Ray INDICATIONS: Chest Pain TECHNIQUE: One view of the chest was acquired. COMPARISON: 08/16/2016 FINDINGS: Surgical changes and devices: None. Lungs and pleura: No pleural effusions or pneumothorax. Lungs are clear. Mediastinum: Mediastinal contours appear normal. Heart size is normal. Bones and chest wall: No suspicious bony lesions. Overlying soft tissues appear unremarkable. IMPRESSION: 1. No acute cardiopulmonary disease. Reviewed by: Gee Sargent MD on 10/16/2020 8:54 AM PDT Approved by: eGe Sargent MD on 10/16/2020 8:54 AM PDT Station ID: [id number]
== END 2020-10-16 03:10 | disposition home or self-care (01) ==
LOC: ED 00:44
DX: R07.89 Other chest pain (principal); R11.0 Nausea; R05 Cough; F41.9 Anxiety disorder, unspecified; Z97.5 Presence of (intrauterine) contraceptive device; F17.200 Nicotine dependence, unspecified, uncomplicated
CPT/HCPCS: 36415; 80053; 83690; 84484; 85025; 85379; 93005; 99284

== ENCOUNTER 2021-08-30 18:54 | Emergency (ER) | payer MEDICAID ==
[2021-08-30] MEDS ORDERED: LIDOCAINE OINTMENT 5% 35.44 GM TUBE TOP STA (20:00)
--- NOTE | 2021-08-30 20:17 | ED Physician Documentation ---
History of Present Illness - Stated complaint Stated Complaint: ABD PX - Chief complaint Chief Complaint: Abd Pain - History obtained from History obtained from: Patient - History of Present Illness Timing: Last night Pain level max: 5 Pain level now: 4 - Additonal information Additional information: Patient is a 46-year-old female who presents to the emergency department complaining of anal pain. She states that she was using a anal sex toy that was made out of silicone that apparently opened and closed. She states that when her went to remove the toy from her anus, she had a prolapse. She states that she went to work today, became increasingly painful so went home and her pushed it back in but she has continued to have pain. No bleeding. Worse with sitting and palpation. Nothing makes it better. Review of Systems Constitutional: denies: Fever, Chills Cardiac: denies: Chest pain / pressure Respiratory: denies: Cough GI: denies: Abdominal Pain, Nausea, Vomiting, Diarrhea Skin: denies: Rash PD PAST MEDICAL HISTORY - Past Medical History Past Medical History: Yes Cardiovascular: None Respiratory: None Endocrine/Autoimmune: None GI: None HEENT: None Psych: Depression, Anxiety Musculoskeletal: Osteoarthritis, Fibromyalgia, Chronic back pain, Other Derm: None - Past Surgical History Past Surgical History: Yes - Present Medications Home Medications: Ambulatory Orders Medication Instructions Recorded Confirmed Gabapentin 300 mg ORAL BID 03/14/16 08/30/18 Meloxicam [Mobic] 15 mg PO DAILY 03/14/16 08/30/18 Morphine Sulfate [Ms Contin] 15 mg PO TID 03/14/16 08/30/18 Omeprazole [PriLOSEC] 40 mg PO BID 03/14/16 08/30/18 Oxycodone HCl/Acetaminophen 1 tab PO TID 03/14/16 08/30/18 [Oxycodone-Acetaminophen 5-325] cycloSPORINE [Cyclosporine] 200 mg PO DAILY 03/14/16 08/30/18 predniSONE [Prednisone] 10 mg PO PRN PRN 03/14/16 08/30/18 Ondansetron Odt [Zofran] 4 mg TL Q6H PRN #10 tablet 05/27/18 08/30/18 Sucralfate [Carafate] 1 gm PO ACHS #60 tablet 05/27/18 08/30/18 Cyclobenzaprine [Flexeril] 10 mg PO TID PRN 08/30/18 08/30/18 Ciprofloxacin HCl [Cipro] 500 mg PO BID #14 tablet 11/25/18 oxyCODONE [Roxicodone] 5 mg PO Q4-6H PRN #14 tablet 11/25/18 Oxycodone HCl/Acetaminophen 1 - 2 each PO Q6H PRN #14 tablet 03/21/20 [Percocet 5-325 mg Tablet] Lidocaine Ointment 5% [Xylocaine 1 applic TOP QID #35.44 gm 08/30/21 Ointment 5%] - Allergies Allergies/Adverse Reactions: Allergies Allergy/AdvReac Type Severity Reaction Status Date / Time Penicillins Allergy violent Verified 08/30/21 19:06 vomiting and cramping - Social History Does the pt smoke?: Yes Smoking Status: Current every day smoker Does the pt drink ETOH?: No Does the pt have substance abuse?: No - Immunizations Immunizations are current?: Yes - POLST Patient has POLST: No PD ED PE NORMAL - Vitals Vital signs reviewed: Yes - General General: Alert and oriented X 3, No acute distress - Cardiac Cardiac: RRR - Respiratory Respiratory: No respiratory distress, Clear bilaterally - Abdomen Abdomen: Soft, Non tender, Non distended - Female Female : Olericulture Teacher present, Other (Patient with perianal bruising at the 6:00 location with mild swelling. No prolapse. No hemorrhoid. No fissure. No other acute findings on digital rectal exam. No blood on the glove. Olericulture Teacher, Yamileth Box RN present) - Derm Derm: Warm and dry - Neuro Neuro: Alert and oriented X 3 - Psych Psych: Normal mood, Normal affect Results - Vitals Vitals: Vital Signs - 24 hr 08/30/21 08/30/21 18:59 20:21 Temperature 36.4 C L 36.5 C Heart Rate 112 H 99 Respiratory 16 16 Rate Blood Pressure 144/95 H 138/88 H O2 Saturation 99 99 Oxygen O2 Source Room air PD MEDICAL DECISION MAKING - ED course Complexity details: considered differential, d/w patient ED course: Patient with what appears to be perianal bruising. No evidence of fissure, laceration. Did not see any hemorrhoids or active prolapse. We will trial her on lidocaine gel for the next few days, warm sitz bath's and follow-up with her PCP. Patient counseled regarding signs and symptoms for which I believe and urgent re-evaluation would be necessary. Patient with good understanding of and agreement to plan and is comfortable going home at this time This document was made in part using voice recognition software. While efforts are made to proofread this document, sound alike and grammatical errors may occur. Departure - Departure Disposition: 01 Home, Self Care Clinical Impression: Contusion of anus Qualifiers: Encounter type: initial encounter Qualified Code(s): S30.3XXA - Contusion of anus, initial encounter Condition: Good Instructions: Sitz Bath, ED Contusion Soft Tissue Follow-Up: Andrea Echevarria MD [Primary Care Provider] - Within 1 week Prescriptions: Lidocaine Ointment 5% [Xylocaine Ointment 5%] 1 applic TOP QID #35.44 gm Comments: You can use the lidocaine ointment 1 application 4 times a day as needed for rectal pain. Use a small amount. You can also use sitz bath at home to help with the bruising. You will likely be sore for 2 to 3 days. You may want to use a stool softener such as Colace or senna to help minimize any firm stools until the bruising heals. Return if you worsen. Discharge Date/Time: 08/30/21 20:21
[2021-08-30 20:22] VITALS: BP 138/88
== END 2021-08-30 20:21 | disposition home or self-care (01) ==
LOC: ED 18:54
DX: S30.3XXA Contusion of anus, initial encounter (principal); T18.5XXA Foreign body in anus and rectum, initial encounter; X58.XXXA Exposure to other specified factors, initial encounter; Y93.89 Activity, other specified; F17.200 Nicotine dependence, unspecified, uncomplicated
CPT/HCPCS: 99282; A9270

== ENCOUNTER 2021-09-08 10:15 | Outpatient (CLI) | payer MEDICAID ==
[2021-09-08 10:27] LABS: BASOPHILS # (AUTO) 0.1 10^3/uL (0.0-0.1); BASOPHILS % (AUTO) 0.8 %; EOSINOPHILS # (AUTO) 0.3 10^3/uL (0.0-0.7); EOSINOPHILS % (AUTO) 3.7 %; HCT - HEMATOCRIT 38.1 % (37.0-47.0); HGB - HEMOGLOBIN 12.9 g/dL (12.0-16.0); LYMPHOCYTES # (AUTO) 2.1 10^3/uL (1.5-3.5); LYMPHOCYTES % (AUTO) 27.8 %; MEAN CORPUSCULAR HEMOGLOBIN 31.9 pg (27.0-31.0); MEAN CORPUSCULAR HGB CONC 33.9 g/dL (32.0-36.0); MEAN CORPUSCULAR VOLUME 94.1 fL (81.0-99.0); MEAN PLATELET VOLUME 9.6 fL (7.9-10.8); MONOCYTES # (AUTO) 0.6 10^3/uL (0.0-1.0); MONOCYTES % (AUTO) 7.3 %; NEUTROPHILS # (AUTO) 4.5 10^3/uL (1.5-6.6); NEUTROPHILS % (AUTO) 60.1 %; PLT - PLATELET COUNT 252 10^3/uL (130-450); RED BLOOD COUNT 4.05 10^6/uL (4.20-5.40); RED CELL DISTRIBUTION WIDTH 12.8 % (12.0-15.0); WHITE BLOOD COUNT 7.5 x10^3/uL (4.8-10.8)
[2021-09-08 10:50] LABS: ALBUMIN 4.2 g/dL (3.2-5.5); ALBUMIN/GLOBULIN RATIO 1.3 (1.0-2.2); ALKALINE PHOSPHATASE 67 IU/L (42-121); ALT ALANINE AMINOTRANSFERASE 16 IU/L (10-60); AST ASPARTATE AMINOTRANSFERASE 16 IU/L (10-42); BILIRUBIN,TOTAL 0.3 mg/dL (0.2-1.0); BUN - BLOOD UREA NITROGEN 17 mg/dL (6-20); CALCIUM 8.9 mg/dL (8.5-10.3); CARBON DIOXIDE - CO2 26 mmol/L (21-32); CHLORIDE 101 mmol/L (101-111); CHOLESTEROL 188 mg/dL; CREATININE 0.6 mg/dL (0.4-1.0); GFR - MDRD 109 (>89); GLUCOSE 104 mg/dL (70-100); HDL CHOLESTEROL 63 mg/dL; LDL CHOLESTEROL,CALCULATED 112 mg/dL; LDL/HDL RATIO 1.8 (<4.4); POTASSIUM 3.5 mmol/L (3.5-5.0); SODIUM 136 mmol/L (135-145); TOTAL PROTEIN 7.5 g/dL (6.7-8.2); TRIGLYCERIDES 65 mg/dL; VLDL CHOLESTEROL 13 mg/dL
[2021-09-08 11:00] LABS: THYROID STIMULATING HORMONE 1.73 uIU/mL (0.34-5.60)
--- NOTE | 2021-09-08 13:09 | XRAY Report ---
PROCEDURE: Lumbar Spine 2 View INDICATIONS: LUMBAR RADICULOPATH,GLUTEAL TENDINITIS/RT HIP,LABS TECHNIQUE: 2 views of the lumbar spine were acquired. COMPARISON: None. FINDINGS: Bones: 5 [id number] vertebrae are present. Lower lumbar facet arthropathy. Trace degenerative a nterolisthesis of L5 on S1. Trace degenerative anterolisthesis of L4 on L5. No vertebral body may elham fractures. No suspicious bony lesions. Soft tissues: Overlying bowel gas pattern is normal. No suspicious soft tissue calcifications. IUD IMPRESSION: Lower lumbar degenerative change. No evidence acute bony abnormality of the lumbar spine . If clinical suspicion and/or symptoms persist, further assessment with repeat plain films or advanced imaging (e.g., CT, MRI, or bone scan) may be helpful for further assessment. Reviewed by: José Miguel Avery MD on 09/08/2021 1:08 PM PDT Approved by: José Miguel Avery MD on 09/08/2021 1:08 PM PDT Station ID: [id number]
--- NOTE | 2021-09-08 13:10 | XRAY Report ---
PROCEDURE: Hip w/Pelvis 2-3V RT INDICATIONS: LUMBAR RADICULOPATH,GLUTEAL TENDINITIS/RT HIP,LABS TECHNIQUE: AP pelvis with lateral view(s) of the right hip(s). COMPARISON: None. FINDINGS: Bones: No fractures or dislocations. Pelvic ring appears intact. No suspicious bony lesions. Soft tissues: The visualized bowel gas pattern is normal. No suspicious soft tissue calcifications. IUD IMPRESSION: No evidence acute bony abnormality of the pelvis and right hip. If clinical suspicion and/or symptoms persist, further assessment with repeat plain films or advanced imaging (e.g., CT, MRI, or bone scan) may be helpful for further assessment. Reviewed by: José Miguel Avery MD on 09/08/2021 1:09 PM PDT Approved by: José Miguel Avery MD on 09/08/2021 1:09 PM PDT Station ID: [id number]
== END 2021-09-08 10:16 | disposition home or self-care (01) ==
LOC: LAB 10:15 → DI 10:16
PROVIDERS: ATTEND Family Medicine
DX: M47.816 Spondylosis without myelopathy or radiculopathy, lumbar region (principal); M47.817 Spondylosis without myelopathy or radiculopathy, lumbosacral region; M76.01 Gluteal tendinitis, right hip; K21.9 Gastro-esophageal reflux disease without esophagitis; F41.8 Other specified anxiety disorders; M15.9 Polyosteoarthritis, unspecified; G89.29 Other chronic pain; M79.7 Fibromyalgia; M35.2 Behcet's disease
CPT/HCPCS: 36415; 80053; 80061; 83721; 84443; 85025

== ENCOUNTER 2022-01-13 11:00 | Outpatient (CLI) | payer MEDICAID ==
--- NOTE | 2022-01-13 12:11 | MRI Report ---
PROCEDURE: Lumbar Spine W/O INDICATIONS: LUMBAR SPONDYLOLISTHESIS TECHNIQUE: Noncontrast sagittal T1 spin echo and T2 fast echo, sagittal STIR, axial T1 and T2 fast spin echo thr ough the lumbar spine. In cases with scoliosis, additional coronal T2 fast spin echo may be performe d. COMPARISON: Correlation is made with the prior abdomen pelvis CT, 12/04/2018 FINDINGS: Image quality: Motion artifact is noted. Alignment and Curvature: There is mild grade 1 anterolisthesis at the L5-S1 level. No associated par s defects are seen. Bone Marrow: Marrow is of normal overall signal. Areas of fatty metaplasia can be seen within the sa jasmin. No acute vertebral body compression fractures. Spinal Cord: Conus medullaris terminates at the L1-L2 level. Visualized cord demonstrates normal si gnal and size. Paraspinous Soft Tissues: No paravertebral masses. Age-appropriate lower thoracic degenerative changes are seen. T12-L1: Moderate loss of disc height and signal are seen. Mild to moderate disc bulge is seen, with a mild central disc protrusion. Bridging anterior osteophytes are seen. Moderate bilateral neural fo raminal narrowing is seen. Mild central canal narrowing is seen. L1-L2: No significant abnormality is seen. L2-L3: Normal in appearance. L3-L4: The disc height and disc signal are well preserved. Mild facet arthropathy is seen. No signi ficant neural foraminal or central canal narrowing can be seen. L4-L5: The disc height and disc signal are well preserved. Moderate disc bulge is seen at this lev el. There is prominent facet hypertrophy seen at this level. There is fluid seen within the left fac et joint. There is at least moderate bilateral neuroforaminal narrowing seen at this level. Compressi on is seen upon the exiting nerve roots. Moderate central canal narrowing is seen. L5-S1: The disc height is well-preserved. There is loss of disc signal seen. Moderate disc bulge is seen at this level. Prominent facet hypertrophy is seen. Moderate to severe bilateral neural for aminal narrowing can be seen, with associated compression upon the exiting nerve roots. Moderate ce ntral canal narrowing is seen. IMPRESSION: Multiple levels of degenerative change are seen, which are overall worst at the L5-S1 le matt. Reviewed by: Nick Eckert MD on 01/13/2022 11:09 AM AKDT Approved by: Nick Eckert MD on 01/13/2022 11:09 AM RINA Station ID: [id number]
== END 2022-01-13 11:01 | disposition home or self-care (01) ==
LOC: DI 11:00
PROVIDERS: ATTEND Family Medicine
DX: M43.17 Spondylolisthesis, lumbosacral region (principal); M47.26 Other spondylosis with radiculopathy, lumbar region; M47.27 Other spondylosis with radiculopathy, lumbosacral region; M48.061 Spinal stenosis, lumbar region without neurogenic claudication; M48.07 Spinal stenosis, lumbosacral region

== ENCOUNTER 2022-08-09 15:43 | Emergency (ER) | payer MEDICAID ==
[2022-08-09 16:05] LABS: GLUCOSE, URINE (UA) NEGATIVE (NEGATIVE); KETONES,URINE (UA) TRACE mg/dL (NEGATIVE); LEUKOCYTE ESTERASE, URINE SMALL (NEGATIVE); NITRITE,URINE NEGATIVE (NEGATIVE); OCCULT BLOOD,URINE NEGATIVE (NEGATIVE); PH,URINE 5.5 PH (5.0-7.5); PROTEIN,URINE TRACE mg/dL (NEGATIVE); UROBILINOGEN,URINE 0.2 (NORMAL) E.U./dL (NORMAL)
[2022-08-09 16:13] LABS: BILIRUBIN,URINE NEGATIVE (NEGATIVE); CLARITY,URINE CLOUDY (CLEAR); HCG UR QUAL NEGATIVE; ICTOTEST,URINE NEGATIVE
[2022-08-09] MEDS ORDERED: SODIUM CHLORIDE 0.9% 1,000 ML IV STA (16:13)
[2022-08-09 16:14] LABS: BACTERIA,URINE Moderate /HPF (None Seen); RBC,URINE 0-5 /HPF (0-5); SQUAMOUS EPITHELIAL CELL,UR MANY Squamous (<= Few)
--- NOTE | 2022-08-09 16:22 | ED Physician Documentation ---
History of Present Illness - Stated complaint Stated Complaint: LOWER BACK PX - Chief complaint Chief Complaint: Back Pain - History obtained from History obtained from: Patient - History of Present Illness Timing: How many weeks ago (1) Pain level max: 7 Pain level now: 6 - Additonal information Additional information: Patient is a 47-year-old female who presents to the emergency department Complaining of dysuria, cloudy urine for the past 1 week. History of kidney infection in the past. She states she started developing back pain earlier today. She states that last night she got up to go to the bathroom, sat on the toilet and then she woke up on the floor. Believes that she had a syncopal event. No chest pain. No shortness of breath. Has not had a syncopal event before. Review of Systems Constitutional: denies: Fever, Chills Cardiac: denies: Chest pain / pressure Respiratory: denies: Dyspnea, Cough GI: denies: Vomiting, Diarrhea Skin: denies: Rash Musculoskeletal: denies: Neck pain Neurologic: denies: Generalized weakness, Focal weakness, Numbness, Confused, Headache, Head injury PD PAST MEDICAL HISTORY - Past Medical History Past Medical History: Yes Cardiovascular: None Respiratory: None Endocrine/Autoimmune: None GI: None HEENT: None Psych: Depression, Anxiety Musculoskeletal: Osteoarthritis, Fibromyalgia, Chronic back pain, Other Derm: None - Past Surgical History Past Surgical History: Yes - Present Medications Home Medications: Ambulatory Orders Medication Instructions Recorded Confirmed Gabapentin 300 mg ORAL BID 03/14/16 08/30/18 Meloxicam [Mobic] 15 mg PO DAILY 03/14/16 08/30/18 Morphine Sulfate [Ms Contin] 15 mg PO TID 03/14/16 08/30/18 Omeprazole [PriLOSEC] 40 mg PO BID 03/14/16 08/30/18 Oxycodone HCl/Acetaminophen 1 tab PO TID 03/14/16 08/30/18 [Oxycodone-Acetaminophen 5-325] cycloSPORINE [Cyclosporine] 200 mg PO DAILY 03/14/16 08/30/18 predniSONE [Prednisone] 10 mg PO PRN PRN 03/14/16 08/30/18 Ondansetron Odt [Zofran] 4 mg TL Q6H PRN #10 tablet 05/27/18 08/30/18 Sucralfate [Carafate] 1 gm PO ACHS #60 tablet 05/27/18 08/30/18 Cyclobenzaprine [Flexeril] 10 mg PO TID PRN 08/30/18 08/30/18 Ciprofloxacin HCl [Cipro] 500 mg PO BID #14 tablet 11/25/18 oxyCODONE [Roxicodone] 5 mg PO Q4-6H PRN #14 tablet 11/25/18 Oxycodone HCl/Acetaminophen 1 - 2 each PO Q6H PRN #14 tablet 03/21/20 [Percocet 5-325 mg Tablet] Lidocaine Ointment 5% [Xylocaine 1 applic TOP QID #35.44 gm 08/30/21 Ointment 5%] Cefpodoxime Proxetil [Vantin] 100 mg PO Q12H #14 tablet 08/09/22 - Allergies Allergies/Adverse Reactions: Allergies Allergy/AdvReac Type Severity Reaction Status Date / Time Penicillins Allergy violent Verified 08/09/22 15:52 vomiting and cramping - Social History Does the pt smoke?: Yes Smoking Status: Current every day smoker Does the pt drink ETOH?: No Does the pt have substance abuse?: No - Immunizations Immunizations are current?: Yes - POLST Patient has POLST: No PD ED PE NORMAL - Vitals Vital signs reviewed: Yes - General General: Alert and oriented X 3, No acute distress, Well developed/nourished - HEENT HEENT: Atraumatic, PERRL, Ears normal, Moist mucous membranes - Neck Neck: Supple, no meningeal sign, No bony TTP - Cardiac Cardiac: RRR, Strong equal pulses - Respiratory Respiratory: No respiratory distress, Clear bilaterally - Abdomen Abdomen: Soft, Non tender, Non distended - Back Back: No CVA TTP, No spinal TTP - Derm Derm: Warm and dry, No rash - Extremities Extremities: No edema, No calf tenderness / cord - Neuro Neuro: Alert and oriented X 3, inspector precision 2-12 intact, No motor deficit, No sensory deficit, Normal speech, Other (Normal bilateral lower extremity patellar and ankle jerk reflexes. Normal great toe extension bilaterally. no saddle anesthesia) Eye Opening: Spontaneous Motor: Obeys Commands Verbal: Oriented GCS Score: 15 - Psych Psych: Normal mood, Normal affect Results - Vitals Vitals: Vital Signs - 24 hr 0208/09/22 08/09/22 15:46 17:22 18:21 Temperature 36.5 C Heart Rate 110 H 79 81 Respiratory 16 28 H 15 Rate Blood Pressure 146/101 H 116/76 113/87 H O2 Saturation 97 98 100 Oxygen O2 Source Room air - EKG (time done) 1620 Rate: Rate (enter#) (88) Rhythm: NSR Varney: Normal Intervals: Normal SD (borderline short) QRS: Normal Ischemia: Normal ST segments - Labs Labs: Laboratory Tests 08/09/22 08/09/22 08/09/22 15:56 16:28 16:28 WBC 6.8 RBC 4.93 Hgb 15.1 Hct 45.4 MCV 92.1 MCH 30.6 MCHC 33.3 RDW 12.2 Plt Count 254 MPV 10.2 Neut # (Auto) 4.1 Lymph # (Auto) 2.3 [place] # (Auto) 0.5 Eos # (Auto) 0.0 Baso # (Auto) 0.0 Absolute Nucleated RBC 0.00 Nucleated RBC % 0.0 Sodium 141 Potassium 3.6 Chloride 102 Carbon Dioxide 26 Anion Gap 13.0 BUN 21 H Creatinine 0.8 Estimated GFR (MDRD) 78 L Glucose 100 Calcium 10.0 Total Bilirubin 0.6 AST 22 ALT 24 Alkaline Phosphatase 71 Troponin I High Sens Total Protein 7.6 Albumin 4.1 Globulin 3.5 Albumin/Globulin Ratio 1.2 Lipase 31 Urine Color YELLOW Urine Clarity CLOUDY Urine pH 5.5 Ur Specific [place] >=1.030 H Urine Protein TRACE Urine Glucose (UA) NEGATIVE Urine Ketones TRACE Urine Occult Blood NEGATIVE Urine Nitrite NEGATIVE Urine Bilirubin NEGATIVE Urine Urobilinogen 0.2 (NORMAL) Ur Leukocyte Esterase SMALL H Urine RBC 0-5 Urine WBC 6-10 H Ur Squamous Epith Cells MANY Squamous H Urine Bacteria Moderate H Ur Microscopic Review INDICATED Urine Culture Comments NOT INDICATED Urine HCG, Qual NEGATIVE 08/09/22 16:28 WBC RBC Hgb Hct MCV MCH MCHC RDW Plt Count MPV Neut # (Auto) Lymph # (Auto) [place] # (Auto) Eos # (Auto) Baso # (Auto) Absolute Nucleated RBC Nucleated RBC % Sodium Potassium Chloride Carbon Dioxide Anion Gap BUN Creatinine Estimated GFR (MDRD) Glucose Calcium Total Bilirubin AST ALT Alkaline Phosphatase Troponin I High Sens 9.7 Total Protein Albumin Globulin Albumin/Globulin Ratio Lipase Urine Color Urine Clarity Urine pH Ur Specific [place] Urine Protein Urine Glucose (UA) Urine Ketones Urine Occult Blood Urine Nitrite Urine Bilirubin Urine Urobilinogen Ur Leukocyte Esterase Urine RBC Urine WBC Ur Squamous Epith Cells Urine Bacteria Ur Microscopic Review Urine Culture Comments Urine HCG, Qual - Rads (name of study) Chest x-ray Radiology: Final report received, See rad report PD Medical Decision Making - ED course Complexity details: reviewed results, re-evaluated patient, considered difftash mayte, d/w patient ED course: 47-year-old female with a UTI. We will place her on antibiotics for this. She has pain medication at home. She had a syncopal event last night as well. No acute findings on EKG, chest x-ray, CBC, chemistry, high-sensitivity troponin. Patient is well-appearing, nontoxic. Afebrile. No evidence of sepsis. Patient also has chronic back pain. No numbness or tingling. No loss of bowel or bladder control. No evidence of cauda equina or epidural abscess. Patient counseled regarding signs and symptoms for which I believe and urgent re- evaluation would be necessary. Patient with good understanding of and agreement to plan and is comfortable going home at this time This document was made in part using voice recognition software. While efforts are made to proofread this document, sound alike and grammatical errors may occur. Departure - Departure Disposition: 01 Home, Self Care Clinical Impression: UTI (urinary tract infection) Qualifiers: Urinary tract infection type: acute cystitis Hematuria presence: without hematuria Qualified Code(s): N30.00 - Acute cystitis without hematuria Condition: Good Instructions: ED UTI Cystitis Female Follow-Up: Andrea Echevarria MD [Primary Care Provider] - Within 1 week Prescriptions: Cefpodoxime Proxetil [Vantin] 100 mg PO Q12H #14 tablet Comments: Take all antibiotics until gone. Your prescription was sent to [facility] in [place]. Please return if you worsen. Discharge Date/Time: 08/09/22 18:28
--- NOTE | 2022-08-09 16:34 | XRAY Report ---
PROCEDURE: Chest 1 View X-Ray INDICATIONS: syncope TECHNIQUE: One view of the chest was acquired. COMPARISON: 10/16/2020. FINDINGS: Surgical changes and devices: None. Lungs and pleura: No pleural effusions or pneumothorax. Lungs are clear. Mediastinum: Mediastinal contours appear normal. Heart size is normal. Bones and chest wall: No suspicious bony lesions. Overlying soft tissues appear unremarkable. IMPRESSION: No acute cardiopulmonary pathology. Reviewed by: Willard Miles MD on 08/09/2022 4:32 PM [facility] Approved by: Willard Miles MD on 08/09/2022 4:32 PM [facility] Station ID: [id number]
[2022-08-09 16:35] LABS: BASOPHILS % (AUTO) 0.4 %; EOSINOPHILS % (AUTO) 0.4 %; HCT - HEMATOCRIT 45.4 % (37.0-47.0); HGB - HEMOGLOBIN 15.1 g/dL (12.0-16.0); LYMPHOCYTES # (AUTO) 2.3 10^3/uL (1.5-3.5); LYMPHOCYTES % (AUTO) 32.9 %; MEAN CORPUSCULAR HEMOGLOBIN 30.6 pg (27.0-31.0); MEAN CORPUSCULAR HGB CONC 33.3 g/dL (32.0-36.0); MEAN CORPUSCULAR VOLUME 92.1 fL (81.0-99.0); MEAN PLATELET VOLUME 10.2 fL (7.9-10.8); MONOCYTES # (AUTO) 0.5 10^3/uL (0.0-1.0); MONOCYTES % (AUTO) 6.6 %; NEUTROPHILS # (AUTO) 4.1 10^3/uL (1.5-6.6); NEUTROPHILS % (AUTO) 59.6 %; PLT - PLATELET COUNT 254 10^3/uL (130-450); RED BLOOD COUNT 4.93 10^6/uL (4.20-5.40); RED CELL DISTRIBUTION WIDTH 12.2 % (12.0-15.0); WHITE BLOOD COUNT 6.8 x10^3/uL (4.8-10.8)
[2022-08-09 16:50] LABS: ALBUMIN 4.1 g/dL (3.2-5.5); ALBUMIN/GLOBULIN RATIO 1.2 (1.0-2.2); BILIRUBIN,TOTAL 0.6 mg/dL (0.2-1.0); CREATININE 0.8 mg/dL (0.4-1.0); POTASSIUM 3.6 mmol/L (3.5-5.0); TOTAL PROTEIN 7.6 g/dL (6.7-8.2)
[2022-08-09] MEDS ORDERED: cefTRIAXone 1 GM VIAL IVP STA (17:21)
[2022-08-09] MEDS ORDERED: methocarbamoL 500 MG TABLET PO STA (17:37)
[2022-08-09 18:22] VITALS: BP 113/87
== END 2022-08-09 18:28 | disposition home or self-care (01) ==
LOC: ED 15:43
DX: N30.00 Acute cystitis without hematuria (principal); F17.200 Nicotine dependence, unspecified, uncomplicated; Z79.899 Other long term (current) drug therapy; Z88.0 Allergy status to penicillin
CPT/HCPCS: 36415; 71045; 80053; 81001; 81025; 83690; 84484; 85025; 93005; 96374; 99284; A9270; 81003; 87086

== ENCOUNTER 2023-10-04 02:32 | Emergency (ER) | payer MEDICAID ==
[2023-10-04 02:58] LABS: BASOPHILS # (AUTO) 0.1 10^3/uL (0.0-0.1); BASOPHILS % (AUTO) 0.5 %; EOSINOPHILS # (AUTO) 0.1 10^3/uL (0.0-0.7); EOSINOPHILS % (AUTO) 0.9 %; HCT - HEMATOCRIT 42.1 % (37.0-47.0); HGB - HEMOGLOBIN 14.6 g/dL (12.0-16.0); LYMPHOCYTES % (AUTO) 18.4 %; MEAN CORPUSCULAR HEMOGLOBIN 31.7 pg (27.0-31.0); MEAN CORPUSCULAR HGB CONC 34.7 g/dL (32.0-36.0); MEAN CORPUSCULAR VOLUME 91.5 fL (81.0-99.0); MEAN PLATELET VOLUME 9.9 fL (7.9-10.8); MONOCYTES # (AUTO) 0.5 10^3/uL (0.0-1.0); MONOCYTES % (AUTO) 4.9 %; NEUTROPHILS # (AUTO) 8.2 10^3/uL (1.5-6.6); PLT - PLATELET COUNT 275 10^3/uL (130-450); WHITE BLOOD COUNT 10.9 x10^3/uL (4.8-10.8)
--- NOTE | 2023-10-04 02:59 | ED Physician Documentation ---
History of Present Illness - Stated complaint Stated Complaint: VOMITING - Chief complaint Chief Complaint: Abd Pain - History obtained from History obtained from: Patient - Additonal information Additional information: HPI from patient. Patient complains of nausea and vomiting since yesterday. There is no inciting event, but the nausea and vomiting have progressed to the point of being unable to tolerate any p.o. including liquids as well as any of her medication. She denies abdominal pain. However, she is also experiencing exacerbation of chronic left lower back/left buttock pain. She says this pain has been attributed to sciatica. While this pain is not new for her, she notes that the recurrent activity of retching with vomiting is increasingly exacerbating this chronic pain. Denies hematemesis, denies fever, denies diarrhea. Review of Systems Constitutional: denies: Fever Cardiac: reports: Reviewed and negative Respiratory: reports: Reviewed and negative GI: reports: Nausea, Vomiting. denies: Abdominal Pain, Abdominal Swelling, Constipation, Diarrhea, Hematemesis, Bloody / black stool : denies: Dysuria, Frequency, Now EGA Musculoskeletal: reports: Back pain (left lower back and left buttock pain) Neurologic: denies: Focal weakness, Numbness PD PAST MEDICAL HISTORY - Past Medical History Past Medical History: Yes Cardiovascular: None Respiratory: None Endocrine/Autoimmune: None GI: Ulcers, Other HEENT: None Psych: Depression, Anxiety Musculoskeletal: Osteoarthritis, Fibromyalgia, Chronic back pain, Other Derm: None Other Past Medical History: H. Pylori - Past Surgical History Past Surgical History: Yes - Present Medications Home Medications: Ambulatory Orders Medication Instructions Recorded Confirmed Meloxicam [Mobic] 15 mg PO DAILY 03/14/16 10/04/23 Omeprazole [PriLOSEC] 40 mg PO BID 03/14/16 10/04/23 predniSONE [Prednisone] 10 mg PO PRN PRN 03/14/16 10/04/23 oxyCODONE [Roxicodone] 5 mg PO Q4-6H PRN #14 tablet 11/25/18 10/04/23 DULoxetine [Cymbalta] 60 mg PO DAILY 10/04/23 10/04/23 Levonorgestrel 20 Mcg/24H [Mirena] 1 ea UD 10/04/23 10/04/23 Ondansetron Odt [Zofran Odt] 4 mg TL Q6H PRN #14 tablet 10/04/23 - Allergies Allergies/Adverse Reactions: Allergies Allergy/AdvReac Type Severity Reaction Status Date / Time Penicillins Allergy violent Verified 10/04/23 02:55 vomiting and cramping - Social History Does the pt smoke?: Yes Smoking Status: Current every day smoker Does the pt drink ETOH?: No Does the pt have substance abuse?: No - Immunizations Immunizations are current?: Yes - POLST Patient has POLST: No PD ED PE NORMAL - Vitals Vital signs reviewed: Yes - General General: Alert and oriented X 3, Well developed/nourished, Other (waxing and waning painful discomfort during H+P, also vomits x 2 during H+P. she is cooperative and answers quickly and appropriately) - Neck Neck: Supple, no meningeal sign - Abdomen Abdomen: Normal bowel sounds, Soft, Non tender, Non distended - Back Back: No spinal TTP - Derm Derm: Normal color, Warm and dry Results - Vitals Vitals: Vital Signs - 24 hr 10/04/23 10/04/23 10/04/23 02:47 03:00 04:55 Temperature 36.2 C L Heart Rate 70 59 L 82 Respiratory 17 18 16 Rate Blood Pressure 170/111 H 178/111 H 137/82 H O2 Saturation 100 98 99 Oxygen O2 Source Room air - Labs Labs: Laboratory Tests 10/04/23 10/04/23 02:50 02:50 WBC 10.9 H RBC 4.60 Hgb 14.6 Hct 42.1 MCV 91.5 MCH 31.7 H MCHC 34.7 RDW 13.0 Plt Count 275 MPV 9.9 Neut # (Auto) 8.2 H Lymph # (Auto) 2.0 [place] # (Auto) 0.5 Eos # (Auto) 0.1 Baso # (Auto) 0.1 Absolute Nucleated RBC 0.00 Nucleated RBC % 0.0 Sodium 139 Potassium 3.4 L Chloride 105 Carbon Dioxide 26 Anion Gap 8.0 BUN 10 Creatinine 0.6 Estimated GFR (MDRD) 108 Glucose 110 H Calcium 9.9 Total Bilirubin 0.4 AST 20 ALT 21 Alkaline Phosphatase 66 Total Protein 7.2 Albumin 4.3 Globulin 2.9 Albumin/Globulin Ratio 1.5 Lipase 29 PD Medical Decision Making - ED course Complexity details: reviewed results, re-evaluated patient, considered differential, d/w patient ED course: No concerning findings on tonight's blood tests. She has very mild leukocytosis (WBC 10.9), and minimal hypokalemia (3.4). Normal LFTs, lipase. She is given 1 L normal saline IV along with 2.5 mg droperidol IV and 1 mg IV Dilaudid. Note that patient did not specifically ask for pain medication, but she appeared to be in significant painful discomfort and was intermittently yelling out in pain, and thus I offered this medication and she is agreeable to the 1 mg IV Dilaudid. She is predominantly concerned about controlling the nausea and vomiting, as she is attributing the exacerbation of her chronic pain to the retching associated with the recurrent vomiting. Patient's abdominal exam is benign, both on initial evaluation as well as a reexam prior to discharge. On reevaluation, she is asleep, awakens to voice with gentle tactile stimulation (shoulder shake). She reports feeling significantly improved and is comfortable with discharge home. I reviewed the test results with her, return precautions were discussed with emphasis placed on returning if she develops abdominal pain, fever, blood in vomitus. I am electronically submitting a prescription for ondansetron to patient's pharmacy of choice. Departure - Departure Disposition: 01 Home, Self Care Clinical Impression: Vomiting, Chronic pain Condition: Good Instructions: ED Nausea Vomiting Prescriptions: Ondansetron Odt [Zofran Odt] 4 mg TL Q6H PRN #14 tablet PRN Reason: Nausea / Vomiting Comments: There were no concerning nor diagnostic findings on tonight's tests. As we discussed, your white blood cell count was minimally above the normal range, and your potassium level was minimally below the normal range. Neither of these findings are to a concerning extent. You should mention the low potassium level to your primary care provider when you next see them (potassium 3.4). I have electronically submitted a prescription for ondansetron (antinausea medication) to the [facility] in [place]. Forms: PCP List Discharge Date/Time: 10/04/23 04:56
[2023-10-04 03:11] LABS: ALBUMIN 4.3 g/dL (3.2-5.5); ALBUMIN/GLOBULIN RATIO 1.5 (1.0-2.2); BILIRUBIN,TOTAL 0.4 mg/dL (0.2-1.0); CALCIUM 9.9 mg/dL (8.5-10.3); CREATININE 0.6 mg/dL (0.6-1.3); POTASSIUM 3.4 mmol/L (3.5-4.5); TOTAL PROTEIN 7.2 g/dL (6.4-8.9)
[2023-10-04] MEDS: DROPERIDOL 5 MG/2 ML VIAL IVP STA (03:20)
[2023-10-04] MEDS: SODIUM CHLORIDE 0.9% 1,000 ML IV STA (03:20)
[2023-10-04] MEDS: HYDROmorphone 1 MG/ML CARPUJECT IVP STA (03:20)
[2023-10-04 05:01] VITALS: BP 137/82; O2SAT 99
== END 2023-10-04 04:56 | disposition home or self-care (01) ==
LOC: ED 02:32
DX: R11.2 Nausea with vomiting, unspecified (principal); G89.29 Other chronic pain; M79.7 Fibromyalgia; Z79.899 Other long term (current) drug therapy; F17.200 Nicotine dependence, unspecified, uncomplicated
CPT/HCPCS: 36415; 80053; 83690; 85025; 96374; 96375; 99284; 99285; J1170

== ENCOUNTER 2023-10-04 21:47 | Emergency (ER) | payer MEDICAID ==
--- NOTE | 2023-10-04 22:09 | ED Physician Documentation ---
PD HPI ABD PAIN - Stated complaint Stated Complaint: NAUSEA/ABD PX - Chief complaint Chief Complaint: Abd Pain - History obtained from History obtained from: Patient - Additional information Additional information: 48-year-old woman with history of ulcers, ovarian cyst remotely and cannabis use as well as tobacco abuse saw my partner last night for vomiting abdominal pain. She improved after Dilaudid and droperidol. She returns with persistent and recurrent central abdominal pain associated with nonbloody vomit. She has not had diarrhea with this. PD PAST MEDICAL HISTORY - Past Medical History Cardiovascular: None Respiratory: None Endocrine/Autoimmune: None GI: Ulcers, Other HEENT: None Psych: Depression, Anxiety Musculoskeletal: Osteoarthritis, Fibromyalgia, Chronic back pain, Other Derm: None - Past Surgical History Past Surgical History: Yes - Present Medications Home Medications: Ambulatory Orders Medication Instructions Recorded Confirmed Meloxicam [Mobic] 15 mg PO DAILY 03/14/16 10/04/23 Omeprazole [PriLOSEC] 40 mg PO BID 03/14/16 10/04/23 predniSONE [Prednisone] 10 mg PO PRN PRN 03/14/16 10/04/23 oxyCODONE [Roxicodone] 5 mg PO Q4-6H PRN #14 tablet 11/25/18 10/04/23 DULoxetine [Cymbalta] 60 mg PO DAILY 10/04/23 10/04/23 Levonorgestrel 20 Mcg/24H [Mirena] 1 ea UD 10/04/23 10/04/23 Metoclopramide [Reglan] 10 mg PO Q6H PRN #20 tablet 10/04/23 Omeprazole 40 mg PO DAILY #30 cap 10/04/23 Ondansetron Odt [Zofran Odt] 4 mg TL Q6H PRN #14 tablet 10/04/23 - Allergies Allergies/Adverse Reactions: Allergies Allergy/AdvReac Type Severity Reaction Status Date / Time Penicillins Allergy violent Verified 10/04/23 22:04 vomiting and cramping - Social History Does the pt smoke?: Yes Smoking Status: Current every day smoker Does the pt drink ETOH?: No Does the pt have substance abuse?: No Substance Use and Type: Marijuana - Immunizations Immunizations are current?: Yes - POLST Patient has POLST: No PD ED PE NORMAL - Vitals Vital signs reviewed: Yes - General General: Alert and oriented X 3, Other (She is writhing in pain and clutching her stomach but completely nontender.) - Cardiac Cardiac: RRR, No murmur - Respiratory Respiratory: No respiratory distress, Clear bilaterally - Abdomen Abdomen: Normal bowel sounds, Soft, Non tender - Neuro Neuro: Alert and oriented X 3 Results - Vitals Vitals: Vital Signs - 24 hr 10/04/23 21:58 Temperature 36.3 C L Heart Rate 75 Respiratory 26 H Rate Blood Pressure 149/108 H O2 Saturation 100 Oxygen O2 Source Room air - Labs Labs: Laboratory Tests 10/04/23 10/04/23 22:17 22:17 WBC 12.9 H RBC 4.65 Hgb 14.6 Hct 42.8 MCV 92.0 MCH 31.4 H MCHC 34.1 RDW 13.0 Plt Count 274 MPV 10.1 Neut # (Auto) 10.1 H Lymph # (Auto) 1.9 [place] # (Auto) 0.8 Eos # (Auto) 0.0 Baso # (Auto) 0.0 Absolute Nucleated RBC 0.00 Nucleated RBC % 0.0 Sodium 136 Potassium 3.9 Chloride 104 Carbon Dioxide 24 Anion Gap 8.0 BUN 10 Creatinine 0.5 L Estimated GFR (MDRD) 133 Glucose 110 H Calcium 10.3 Magnesium 1.9 Total Bilirubin 0.4 AST 22 ALT 23 Alkaline Phosphatase 71 Total Protein 7.5 Albumin 4.4 Globulin 3.1 Albumin/Globulin Ratio 1.4 PD Medical Decision Making - ED course ED course: 48-year-old woman presents with vomiting and diffuse abdominal pain but with a very benign examination. Differential would include cannabinoid hyperemesis, recurrent H. pylori or other form of gastritis/ulcer disease. I do not think she has an acute surgical emergency given the lack of tenderness. She was medicated with droperidol and on recheck at 10:53 PM she was appearing much more comfortable, slightly sedated but still complaining of epigastric and diffuse pain. She had her nausea was waxing waning. Will trial a GI cocktail. CBC showing mild nonspecific leukocytosis. CMP unremarkable. Care to Dr. Cox at 11 PM shift change pending reevaluation. Departure - Departure Clinical Impression: Abdominal pain Vomiting Qualifiers: Vomiting type: unspecified Nausea presence: without nausea Qualified Code(s): R11.11 - Vomiting without nausea Condition: Good Record reviewed to determine appropriate education?: Yes Instructions: ED Abdominal Pain Female Non-Specific Abdominal Pain Prescriptions: Omeprazole 40 mg PO DAILY #30 cap Metoclopramide [Reglan] 10 mg PO Q6H PRN #20 tablet PRN Reason: nausea or headache Comments: You are seen today for abdominal pain and vomiting. You may benefit from another upper endoscopy to recheck if your peptic ulcer disease and Helicobacter pylori has recurred. Follow-up with your doctor for discussion of this and potential referrals. Call your doctor to arrange a follow-up appointment, make the next available appointment. In the interim, return anytime if worse or if new symptoms develop. I sent your prescription electronically to the [facility] pharmacy at the corner of [address] [address] [place] here in [place]. As we discussed initially, your symptoms may be due to cannabis use and would recommend ceasing use of this. Forms: PCP List
[2023-10-04] MEDS: DROPERIDOL 5 MG/2 ML VIAL IVP STA (22:22)
[2023-10-04] MEDS: SODIUM CHLORIDE 0.9% 1,000 ML IV STA (22:22)
[2023-10-04] MEDS: PANTOPRAZOLE 40 MG VIAL IVP STA (22:22)
[2023-10-04 22:25] LABS: BASOPHILS % (AUTO) 0.3 %; EOSINOPHILS % (AUTO) 0.1 %; HCT - HEMATOCRIT 42.8 % (37.0-47.0); HGB - HEMOGLOBIN 14.6 g/dL (12.0-16.0); LYMPHOCYTES # (AUTO) 1.9 10^3/uL (1.5-3.5); LYMPHOCYTES % (AUTO) 14.7 %; MEAN CORPUSCULAR HEMOGLOBIN 31.4 pg (27.0-31.0); MEAN CORPUSCULAR HGB CONC 34.1 g/dL (32.0-36.0); MEAN PLATELET VOLUME 10.1 fL (7.9-10.8); MONOCYTES # (AUTO) 0.8 10^3/uL (0.0-1.0); MONOCYTES % (AUTO) 6.3 %; NEUTROPHILS # (AUTO) 10.1 10^3/uL (1.5-6.6); NEUTROPHILS % (AUTO) 78.4 %; PLT - PLATELET COUNT 274 10^3/uL (130-450); RED BLOOD COUNT 4.65 10^6/uL (4.20-5.40); WHITE BLOOD COUNT 12.9 x10^3/uL (4.8-10.8)
[2023-10-04 22:35] LABS: MAGNESIUM 1.9 mg/dL (1.7-2.3)
[2023-10-04 22:36] LABS: ALBUMIN 4.4 g/dL (3.2-5.5); ALBUMIN/GLOBULIN RATIO 1.4 (1.0-2.2); BILIRUBIN,TOTAL 0.4 mg/dL (0.2-1.0); CALCIUM 10.3 mg/dL (8.5-10.3); CREATININE 0.5 mg/dL (0.6-1.3); POTASSIUM 3.9 mmol/L (3.5-4.5); TOTAL PROTEIN 7.5 g/dL (6.4-8.9)
[2023-10-04] MEDS: LIDOCAINE VISCOUS 2% 15 ML UDC MM STA (23:07)
[2023-10-04] MEDS: MAG HYDROX/AL HYDROX/SIMETH 30 ML UDC PO STA (23:08)
[2023-10-04] MEDS ORDERED: ONDANSETRON 4 MG/2 ML VIAL IVP STA (23:20)
[2023-10-04] MEDS ORDERED: PROMETHAZINE 25 MG/1 ML VIAL ONE (23:33)
[2023-10-04] MEDS: HYDROmorphone 1 MG/ML CARPUJECT IVP STA (23:35)
[2023-10-04] MEDS: PROMETHAZINE INJ 25 MG in SODIUM CHLORIDE 0.9% 50 ML IV STA (23:36)
[2023-10-05] MEDS: diphenhydrAMINE INJ 50 MG/ML VIAL IVP STA (00:08)
[2023-10-05] MEDS ORDERED: iohexoL-300 100 ML VIAL ONE (01:05)
[2023-10-05 01:21] LABS: BILIRUBIN,URINE NEGATIVE (NEGATIVE); GLUCOSE, URINE (UA) NEGATIVE (NEGATIVE); KETONES,URINE (UA) NEGATIVE (NEGATIVE); LEUKOCYTE ESTERASE, URINE NEGATIVE (NEGATIVE); NITRITE,URINE NEGATIVE (NEGATIVE); OCCULT BLOOD,URINE NEGATIVE (NEGATIVE); PROTEIN,URINE NEGATIVE (NEGATIVE); UROBILINOGEN,URINE 0.2 (NORMAL) E.U./dL (NORMAL)
[2023-10-05 01:23] LABS: CLARITY,URINE CLEAR (CLEAR); HCG UR QUAL NEGATIVE
[2023-10-05] MEDS: KETOROLAC 30 MG/ML VIAL IVP STA (01:23)
[2023-10-05] MEDS: LORazepam 2 MG/ML VIAL IVP STA (01:23)
[2023-10-05] MEDS: iohexoL-300 100 ML VIAL IVP ONE (01:33)
--- NOTE | 2023-10-05 01:47 | CT Report ---
PROCEDURE: Abdomen/Pelvis W INDICATIONS: upper abdominal pain CONTRAST: omni 300, 100mls TECHNIQUE: After the administration of intravenous contrast, a CT scan of the abdomen and pelvis was performed. Images were recorded and evaluated at appropriate window settings. Reformats: coronal and sagittal. F or radiation dose reduction, the following was used: automated exposure control, adjustment of mA and /or kV according to patient size. COMPARISON: CT abdomen pelvis 11/24/2018 FINDINGS: Image quality: Diagnostic. Lower chest: Unremarkable. Liver: No solid mass. Gallbladder and biliary tree: No radiopaque stones or wall thickening. No biliary dilation. Spleen: No splenomegaly. Pancreas: No pancreatic ductal dilation. Adrenals: No adrenal nodule. Kidneys and ureters: No hydronephrosis. No renal cystic lesion which requires follow up. No solid mas s. Stomach, bowel and peritoneum: No bowel distension. No pathologic free fluid. Normal appendix. Lymph nodes: No central or retroperitoneal adenopathy. Vessels: No infrarenal aortic aneurysm. PELVIS Reproductive organs: Intrauterine device in place. 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 Bladder: No abnormal wall thickening, accounting for underdistention. Pelvic lymph nodes: No pelvic adenopathy by size criteria. Bones: No aggressive osseous abnormality. Mild anterolisthesis of L4 on L5. Grade I anterolisthesis o f L5 on S1. Mild degenerative changes of the spine. Other: No significant ventral or inguinal hernia. IMPRESSION: No acute findings within the abdomen or pelvis to explain patient's symptoms. Reviewed by: Lito Smyth MD on 10/05/2023 1:46 AM PDT Approved by: Lito Smyth MD on 10/05/2023 1:46 AM PDT Station ID: [id number]
[2023-10-05] MEDS: HYDROmorphone 1 MG/ML CARPUJECT IVP STA (01:56)
--- NOTE | 2023-10-05 01:59 | ED Physician Documentation ---
ED Addendum - Addendum Addendum: 10/05/23 01:56 I received signout/turnover of care of this patient from Dr. Baker; please see his note for complete H&P. In short, patient returns less than 24 hours after being treated and released from this emergency department for the same symptoms she has tonight. She complains of nausea, vomiting, abdominal pain. No concerning or diagnostic findings on last night's blood tests nor on tonight's repeat blood tests; mild leukocytosis yesterday is slightly worse today, although the white blood cell count is still only mildly elevated at 12.9. Normal LFTs, lipase. At the time of signout, patient had recently received a "GI cocktail", and the plan is to see if she has improvement in her symptoms with this measure. She was also given several other IV medications and IV fluids before the turnover of care. Unfortunately, the patient was complaining of worsening nausea, vomiting, and abdominal pain. I reevaluated her and she is indicating upper abdominal pain, I find her to have mild tenderness to palpation across the upper abdomen, most notably in the epigastrium; there is no rebound nor guarding. She says she feels as nauseous as when she first came to the emergency department tonight. During my shift, several more medications were given with eventual control of her symptoms. These medications were Dilaudid 1 mg, 25 mg IV Phenergan, 25 mg IV Benadryl, 30 mg IV Toradol, and 2 mg IV lorazepam. Due to her persistence of symptoms and abdominal tenderness, albeit mild, a CT scan of the abdomen and pelvis with IV contrast was undertaken. There are no findings on the CT scan of concern, no findings that would explain her symptoms. Incidental note of mild anterolisthesis L4 on L5 and grade 1 anterolisthesis L5 on S1 along with mild degenerative change of the spine are noted. On my third bedside evaluation of this patient tonight, after the CT was resulted, I went in to discuss the results with her. The ED RN to the patient said she still needed something for pain as she felt the medications have been ineffective. On this third evaluation, patient is asleep. She is very drowsy, awakens with repeated verbal and gentle tactile stimulus (shoulder shake). Although she does fall back asleep rapidly, I was able to keep her awake long enough to review the CT scan results with her and review discharge plan and return precautions. I reminded her that Dr. Baker had electronically submitted prescriptions to her pharmacy. She acknowledged understanding of the CT results and agreement/comfort with d/c home. Note that I had ordered 1 mg IV Dilaudid (second dose) based on ED RN informing me that the patient said she was still having significant pain, but I canceled this upon finding her to be very drowsy on the reevaluation noted above.
[2023-10-05 02:27] VITALS: BP 131/80; O2SAT 98
== END 2023-10-05 02:27 | disposition home or self-care (01) ==
LOC: ED 21:47
DX: R11.11 Vomiting without nausea (principal); R10.9 Unspecified abdominal pain; Z87.11 Personal history of peptic ulcer disease; M79.7 Fibromyalgia; Z79.899 Other long term (current) drug therapy; F17.200 Nicotine dependence, unspecified, uncomplicated; F12.90 Cannabis use, unspecified, uncomplicated
CPT/HCPCS: 36415; 74177; 80053; 81003; 81025; 83735; 85025; 96365; 96375; A9270; J1170; J1200; J2060; J7040; Q9967; 81001; 87086

== ENCOUNTER 2023-10-10 12:04 | Outpatient (CLI) | payer BC ==
[2023-10-10 12:17] LABS: BASOPHILS # (AUTO) 0.1 10^3/uL (0.0-0.1); BASOPHILS % (AUTO) 0.8 %; EOSINOPHILS # (AUTO) 0.5 10^3/uL (0.0-0.7); EOSINOPHILS % (AUTO) 5.1 %; HCT - HEMATOCRIT 39.5 % (37.0-47.0); HGB - HEMOGLOBIN 13.2 g/dL (12.0-16.0); LYMPHOCYTES # (AUTO) 1.5 10^3/uL (1.5-3.5); LYMPHOCYTES % (AUTO) 17.1 %; MEAN CORPUSCULAR HEMOGLOBIN 30.9 pg (27.0-31.0); MEAN CORPUSCULAR HGB CONC 33.4 g/dL (32.0-36.0); MEAN CORPUSCULAR VOLUME 92.5 fL (81.0-99.0); MEAN PLATELET VOLUME 9.8 fL (7.9-10.8); MONOCYTES # (AUTO) 0.7 10^3/uL (0.0-1.0); MONOCYTES % (AUTO) 7.5 %; NEUTROPHILS # (AUTO) 6.1 10^3/uL (1.5-6.6); NEUTROPHILS % (AUTO) 69.2 %; PLT - PLATELET COUNT 263 10^3/uL (130-450); RED BLOOD COUNT 4.27 10^6/uL (4.20-5.40); WHITE BLOOD COUNT 8.8 x10^3/uL (4.8-10.8)
[2023-10-10 12:43] LABS: ALBUMIN 4.3 g/dL (3.2-5.5); ALBUMIN/GLOBULIN RATIO 1.7 (1.0-2.2); ALKALINE PHOSPHATASE 64 IU/L (42-121); ALT ALANINE AMINOTRANSFERASE 14 IU/L (10-60); AST ASPARTATE AMINOTRANSFERASE 15 IU/L (10-42); BILIRUBIN,TOTAL 0.3 mg/dL (0.2-1.0); BUN - BLOOD UREA NITROGEN 17 mg/dL (6-20); CALCIUM 9.6 mg/dL (8.5-10.3); CARBON DIOXIDE - CO2 29 mmol/L (21-32); CHLORIDE 103 mmol/L (101-111); CHOL/HDL RATIO 2.9 (<4.4); CHOLESTEROL 161 mg/dL; CREATININE 0.6 mg/dL (0.6-1.3); GFR - MDRD 108 (>89); GLUCOSE 84 mg/dL (74-104); HDL CHOLESTEROL 56 mg/dL; LDL CHOLESTEROL,CALCULATED 85 mg/dL; LDL/HDL RATIO 1.5 (<4.4); POTASSIUM 3.3 mmol/L (3.5-4.5); SODIUM 137 mmol/L (135-145); TOTAL PROTEIN 6.8 g/dL (6.4-8.9); TRIGLYCERIDES 99 mg/dL (48-352); VLDL CHOLESTEROL 20 mg/dL
== END 2023-10-10 12:05 | disposition home or self-care (01) ==
LOC: LAB 12:04
PROVIDERS: ATTEND Family Medicine
DX: R10.816 Epigastric abdominal tenderness (principal); R11.2 Nausea with vomiting, unspecified; I10 Essential (primary) hypertension; M43.16 Spondylolisthesis, lumbar region; M54.16 Radiculopathy, lumbar region; F41.8 Other specified anxiety disorders
CPT/HCPCS: 36415; 80053; 80061; 83721; 84443; 85025

== ENCOUNTER 2023-10-14 08:00 | Outpatient (CLI) | payer BC ==
[2023-10-14 19:56] LABS: H. PYLORIS ANTIGEN STL NEGATIVE (Negative)
== END 2023-10-14 23:59 | disposition home or self-care (01) ==
LOC: LAB.R 08:00
PROVIDERS: ATTEND Family Medicine
DX: R10.816 Epigastric abdominal tenderness (principal); R11.2 Nausea with vomiting, unspecified
CPT/HCPCS: 87338

== ENCOUNTER 2023-10-17 08:16 | Outpatient (CLI) | payer BC ==
--- NOTE | 2023-10-17 10:44 | Ultrasound Report ---
PROCEDURE: Abdomen Limited INDICATIONS: EPIGASTRIC TENDERNESS TECHNIQUE: Real-time focused scanning was performed of the abdomen, with image documentation. COMPARISONS: CT 10/05/2023, 08/03/2018 ultrasound FINDINGS: The liver measures 12 cm. 8 x 10 mm lesion at the right lobe ductal with hyperechoic appearance. Main portal vein is patent. Questionable mild mucosal edema of the gallbladder. Overall there is no wall thickening. No sonograph ic Fleming's sign. CBD measures 5 mm. Pancreas is unremarkable. Right kidney measures 11 cm. IVC is patent. IMPRESSION: No acute sonographic abnormality. No gallstones or sonographic Fleming's sign. Questionable mild mucosal edema of the gallbladder. Correlate with LFTs. Consider nuclear medicine HI DA study to evaluate gallbladder ejection fraction if necessary. 8 x 10 mm hyperechoic liver lesion is usually a hemangioma. This was noted on ultrasound from 08/03/19 19. Consider follow-up if the patient has any other history of malignancy. Reviewed by: Bryant oGod MD on 10/17/2023 10:43 AM PDT Approved by: Bryant Good MD on 10/17/2023 10:43 AM PDT Station ID: [id number]
== END 2023-10-17 08:17 | disposition home or self-care (01) ==
LOC: DI 08:16
PROVIDERS: ATTEND Family Medicine
DX: K76.9 Liver disease, unspecified (principal)